=== PATIENT | female | born 1970 | race Caucasian/White ===

== ENCOUNTER 2024-09-29 09:28 | Outpatient (AMB) | payer MEDICARE, MEDICAID, SELFPAY ==
--- NOTE | 2024-09-29 09:31 | A.SPINEOV_ITS ---
Vital Signs 09/29/24 09:42 Height 5 ft 3 in Weight 238 lb BMI 42.2 Intake Visit Reasons: LBP Intake Note: Ms. Velez is here today c/o low back pain. 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: No Allergies dupilumab (From Dupixent Pen) Allergy (Intermediate, Verified 09/29/24 09:44) Rash NSAIDS (Non-Steroidal Anti-Inflamma Allergy (Intermediate, Verified 09/29/24 09:44) Rash Opioids - Morphine Analogues Allergy (Intermediate, Verified 09/29/24 09:44) Rash Sulfa (Sulfonamide Antibiotics) Allergy (Intermediate, Verified 09/29/24 09:44) Rash Physical Exam Vital Signs: BMI result Body Mass Index 42.2 Assessment & Plan Assessment & Plan (1) Chronic SI joint pain: Code(s): M53.3 - Sacrococcygeal disorders, not elsewhere classified; G89.29 - Other chronic pain Category: Medical Plan Thank you for referring Mrs Velez to our office today. She is a very nice 54-year-old female who suffers from severe asthma, who has had pain in the low back for several years. She localizes it best over the left SI joint. The pain is aggravated with standing, prolonged sitting or when she is bending and getting up to an upright position she will feel significant increase in her pain. Long car rides also will be disabling for a number of days afterwards. She can not take anti-inflammatories, so when she has a flare-up she will take some Tylenol and just generally rest but the symptoms can be incapacitating at times. It bothers her when she is sleeping and rolling over. She gets a little bit of the similar symptoms on the right side but for the most part it is on the left. She underwent injections with Dr. Camargo into the left SI joint and initially was getting about a 60-70% improvement in her symptoms but the last few injections it is more in the 30-40% range. Her lumbar spine has not shown any significant pathology. She was referred over to us to see if she is a candidate for SI joint fusion. She has undergone physical therapy as well as acupuncture to treat this. PMH: Main issue in her life is that she developed severe asthma as an adult and it is generally well controlled right now. She is followed by Dr. Kirby in [place]. Generally she is on prednisone but he has been able to get her on the right combination of inhalers so that she is no longer on this. The chronic prednisone has been an issue with her bones giving her osteopenia in his also made her prediabetic. She has had frontal sinus obliteration surgery, Achilles tendon resection and carpal tunnel release bilaterally. She has also had lithotripsy for kidney stones. History of GERD, peptic ulcer disease, hypertension. As far she knows her heart is in OK shape, she had a stress test a few years ago and that was negative. Social hx: She will smoke pot most days, does not smoke cigarettes or use any meaningful amount of alcohol Medications: Bupropion, albuterol, Tylenol, Klonopin, clonidine, vitamin B12 s hot, Pepcid, Nasalide, aspirin 325, hydroxyzine, Breo Ellipta inhaler, Trelegy inhaler, Nasalide, levothyroxine, hydroxyzine, gabapentin, melatonin, Vyvanse, pantoprazole, prazosin, Suvorexant, Tezspire monthly injection, zileuton Allergies: Please see the [email or web address] list Physical exam: Awake alert oriented no acute distress, the patient does have antalgic gait with walking down the hallway, localizes her pain over the left SI joint demonstrating positive finger Liset test. She does have reproducible pain with CHINMAY testing and direct compression of the SI joint. Strength in the lower extremities and reflexes are normal Imaging review: Lumbar MRI at [facility] shows no meaningful pathology in the lumbar spine. Impression: 54-year-old female with history of severe asthma, presents with low back pain primarily on the left side localizing over the SI joint. She has had intermittent decent responses to the SI joint injections that were done by Dr. Camargo although they become less successful over time. She has tried all the other conservative options that are available to her including medications, physical therapy, acupuncture etc.. She is very frustrated with her quality of life because she really can not do anything in terms of standing walking or sitting. She is constantly changing positions. She has a lot of trouble sleeping. She can only take Tylenol and the gabapentin help with the pain. She has no meaningful lumbar pathology to explain the pain. Although Dr. Ramey usually likes to have 80% response to the injections, since she has had upwards of 60-70% with the 1st few injections I will see if he would be willing to do SI joint fusion on her. Once I have a chance to review everything with him I will call the patient and update her. We did talk about the procedure, risks, benefits etc.. Success rate quoted at 60-70% improvement in her pain. She understands she will have to use crutches or walker afterwards and be nonweightbearing on her left leg. Thank you for allowing us to care for your patient. The total time spent with this visit with this patient was 45 minutes reviewing history, physical exam, lumbar imaging review, and implementation of treatment plan or further diagnostic testing Jose G Ramey MD,PhD [facility] Coding Level of Care Code New Pt Level 4 (23027) Diagnoses Chronic SI joint pain M53.3; G89.29
[2024-09-29 09:42] VITALS: BMI 42.2
--- OUTSIDE RECORDS SUMMARY | 2024-09-29 10:38 | XMS_ITS | Clinical Summary ---
Author Organization [facility] Address [address] [facility] [address] [place] [phone] Phone Care Team Providers Care Sales Department Manager Name Role Phone Theresa Hou MD Primary Care Prov ider Allergies Active Allergy Reactions Criticality Noted Date Comments Dupilumab Fever High 09/06/2019 Possible serum sickness Morphine Rash,Other (See Comments) Low 12/05/2010 Other Reaction(s): Rash/Dermatitis morphine Nsaids (Non-Steroidal Anti-Inflammatory Drug) Anaphylaxis,Other (See Comments) High 03/17/2012 Aspirin ok Non-steroidal anti-inflammatory agent (product) Sulfa (Sulfonamide Antibiotics) Rash Low 03/17/2012 Developed delayed rash to Bactrim and required 1d of hospitalization for it in 2001. Sulfa Drugs Other Reaction(s): Rash/Dermatitis Developed delayed rash to Bactrim and required 1d of hospitalization for it in 2001. Sulfamethoxazole-Tr imethoprim Other (See Comments) 05/20/2011 Bactrim Other Reaction(s): Rash/Dermatitis Bactrim Medications pantoprazole (PROTONIX) 40 MG tablet Take 40 mg by mouth 2 (two) times a day. Active nebulizer and compressor DeviIndications:As pirin-sensitive asthma with nasal polyps Requesting Portable Nebulizer plus: 1 filter/month 2 disposable neb kits/month 1 permanent neb kit/6 months Every six hours PRN for wheezing/shortness of breath 1 each 019 Active famotidine (PEPCID) 20 MG tablet Take 40 mg by mouth daily. Active ergocalciferol (DRISDOL) 50,000 unit capsule Take 1 capsule by mouth once a week. Active multivitamin per tablet Take by mouth daily. Active ascorbic acid, vitamin C, (VITAMIN C) 500 MG tablet Take 500 mg by mouth daily. Active calcium carbonate-vit D3-min 600 mg calcium- 400 unit Tab Take 1 tablet by mouth. Active aspirin 325 MG EC tabletIndications: [place]amp[place] Triad (AERD) ASA desensitization test 02/2021 Take 325 mg by mouth daily. Indications: Sampters Triad (AERD) ASA desensitization test 02/2021 Active melatonin 5 mg Tab Take 5 mg by mouth nightly at bedtime. at bedtime. Active clonazePAM (KLONOPIN) 0.5 MG tablet Take 0.5 mg by mouth daily as needed. Active EPINEPHrine 0.3 mg/0.3 mL auto-injector INJECT CONTENTS OF 1 PEN NEEDED FOR ANAPHYLACTIC REACTION Active CLIMARA PRO 0.045-0.015 mg/24 hr APPLY 1 PATCH TOPICALLY TO SKIN ONCE A WEEK 023 Active cyanocobalamin, vitamin B-12, (VITAMIN B-12 INJ) Inject 1,000 mcg as directed every 28 days. Active lisdexamfetamine (VYVANSE) 50 MG capsule Take 1 capsule by mouth every morning. Active hydrOXYzine (ATARAX) 50 MG tablet Take 50 mg by mouth 3 (three) times a day as needed. 024 Active clobetasol (TEMOVATE) 0.05 % ointment Apply 1 Application topically 2 (two) times a day. 024 Active brimonidine (ALPHAGAN) 0.2 % ophthalmic solution Place 1 drop into each eye 2 (two) times a day. 024 Active albuterol 2.5 mg /3 mL (0.083 %) nebulizer solutionIndication s:Severe persistent asthma without complication USE 1 VIAL IN NEBULIZER EVERY 6 HOURS NEEDED 300 mL 11 025 Active albuterol 90 mcg/actuation inhalerIndications :Severe persistent asthma without complication Inhale 2 puffs into the lungs every 6 (six) hours as needed for wheezing. 9 g 5 025 Active zileuton (ZYFLO CR) 600 mg CR tablet Take 2 tablets (1,200 mg total) by mouth 2 (two) times a day with meals. 120 tablet 11 Active buPROPion (WELLBUTRIN XL) 300 MG ER 24 hr tablet Take 300 mg by mouth every morning. Active tezepelumab-ekko (TEZSPIRE) 210 mg/1.91 mL (110 mg/mL) subcutaneous pen injectorIndication s:Severe persistent asthma without complication,Nasal polyp, benign,Chronic pansinusitis Inject 1.9 mL (210 mg total) under the skin every 28 days. 1.9 mL 12 Active fluticasone-umecli din-vilanter (TRELEGY ELLIPTA) 200-62.5-25 mcg inhalerIndications :Severe persistent asthma with acute exacerbation Inhale 1 puff into the lungs daily. 180 each Active fluticasone furoate (ARNUITY ELLIPTA) 200 mcg/actuation DsDv Inhale 1 puff into the lungs daily. 90 each 3 Active cloNIDine HCL (CATAPRES) 0.3 MG tablet Take 0.3 mg by mouth 2 (two) times a day. Active buPROPion (WELLBUTRIN XL) 150 MG ER 24 hr tablet TAKE 1 TABLET BY MOUTH EVERY MORNING TOGETHER WITH 300 MG FOR TOTAL DAILY DOSE OF 450 MG Active suvorexant (BELSOMRA) 10 mg tablet Take 1 tablet (10 mg total) by mouth nightly at bedtime. Take within 30 minutes of going to bed. 30 tablet 2 Active albuterol-budesoni de (AIRSUPRA) 90-80 mcg/actuation inhaler Inhale 2 puffs into the lungs every 4 (four) hours as needed for shortness of breath/dyspnea. 10.7 g 5 Active gabapentin (NEURONTIN) 400 MG capsule Take 400 mg by mouth 4 (four) times a day. Active prazosin (MINIPRESS) 2 MG capsule Take 2 mg by mouth nightly at bedtime. Active levothyroxine (SYNTHROID,LEVOTHR OID) 25 MCG tablet Take 1 tablet by mouth every morning. 023 2024 Disconti nued(No longer taking) prazosin (MINIPRESS) 1 MG capsule Take 1 mg by mouth nightly at bedtime. 2024 Disconti nued(No longer taking) predniSONE (DELTASONE) 2.5 MG tablet Take 2 tablets (5 mg total) by mouth daily. 90 tablet 5 025 2024 Disconti nued(No longer taking) gabapentin (NEURONTIN) 300 MG capsule Take 300 mg by mouth. 2024 Disconti nued(No longer taking) buPROPion (WELLBUTRIN XL) 300 MG ER 24 hr tablet Take 300 mg by mouth every morning. 2024 Disconti nued(No longer taking) brimonidine (LUMIFY) 0.025 % opthalmic solution Apply to eye. 2024 Disconti nued(No longer taking) predniSONE (DELTASONE) 2.5 MG tablet Take 5 mg by mouth daily. 2024 Disconti nued(No longer taking) Active Problems Problem Noted Date Diagnosed Date Need for RSV vaccination 08/30/2024 Assessment & Plan (08/30/2024 12:56 PM EDT): Extremely high risk. Recommend obtain RSV vaccine in the fall. Also encouraged to get seasonal flu vaccine and updated COVID-19 vaccine. 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 B12 deficiency 03/18/2023 Assessment & Plan (03/18/2023 1:00 PM EST): Out of convenience, will add IM B12 injections to her monthly IV infusions of CINQUIR . Hypertension 09/06/2019 Assessment & Plan (11/16/2020 2:51 PM EDT): Usual medications ordered Esophageal spasm 10/05/2018 Overview (10/05/2018): Response to sublingual nitroglycerin Assessment & Plan (12/06/2019 4:33 PM EDT): No recent flares. Continue as needed sublingual nitroglycerin. Assessment & Plan (01/31/2019 11:08 AM EST): Continue PRN sublingual nitroglycerin. Assessment & Plan (10/05/2018 12:20 PM EDT): Continue PRN sublingual nitro glycerin for now. Await results of upper endoscopy and further GI recommendations based on findings. Chronic pansinusitis 03/06/2017 Overview (12/06/2019): With nasal polyposis Assessment & Plan (05/25/2024 12:10 PM EDT): No active sinusitis on exam. Given dryness and crusting however, strongly encouraged to resume daily NetiPot. Assessment & Plan (02/11/2022 4:26 PM EST): Mild ear fullness, likely secondary to rhinitis. Continue daily NetiPot. Suggest resume nasal steroids either with budesonide or a nasal steroid spray. Can use oral decongestant or Afrin for 3 days. Assessment & Plan (07/31/2021 11:33 AM EDT): Encourage use of NetiPot daily as she weans her budesonide. Assessment & Plan (03/29/2021 1:01 PM EST): Thus far, no significant polyp regrowth and no recent infections. Patient followed closely by ENT, Dr. Kinney. Remains on regimen of budesonide and nasal rinse twice daily. Assessment & Plan (08/23/2020 11:37 AM EDT): Generally improved with signs and symptoms of early acute sinusitis. Continue twice daily budesonide rinse and aspirin therapy. Start Afrin 2-3 sprays each side twice daily for no more than 3 days. Start prednisone 40 mg daily for 5 days. Prescription for Augmentin x10 days provided if no improvement or any worsening in the next 2 days. Assessment & Plan (05/23/2020 12:51 PM EDT): Continue budesonide nasal rinse per Dr. Kinney. Assessment & Plan (03/07/2020 1:34 PM EST): No evidence for active acute bacterial infection at this time. Awaiting follow-up with ENT. Assessment & Plan (12/06/2019 4:34 PM EDT): No recent flares. Continue aspirin therapy. Continue nasal budesonide per ENT. Assessment & Plan (06/08/2019 2:05 PM EDT): Chronic rhinosinusitis with nasal polyposis. Currently clinically well controlled. Continue once daily full dose enteric-coated aspirin 325 mg. Continue twice daily budesonide sinus rinse. Continue Zyflo twice daily. Start Dupixent therapy as outlined above. Follow-up with Dr. Kinney as scheduled. Assessment & Plan (11/29/2017 4:36 PM EDT): Currently well controlled. Continue nasal rinse and nasal steroids. Assessment & Plan (06/04/2017 9:31 PM EDT): Resolution of prior acute sinusitis. Agree with current aggressive regimen including twice daily sinus saline rinse with additional baby shampoo, budesonide sinus rinse and additional nasal steroids. Assessment & Plan (03/06/2017 10:20 AM EST): On antiboitics. Start Afrin NS 1-23 sprays each side twice daily for 2-3 days max. Sinus rinse twice daily, add 1/2 tsp of baby shampoo (no fragrance) to each bottle. THEN, Budesonide in each nares twice daily (bulb syringe?) History of Clostridium difficile infection 03/06 Overview (03/06/2017): Community acquired Assessment & Plan (03/06/2017 10:17 AM EST): Recommend obtain Vancomycin prophylactically while on ABx. Rx for 14 days (ABx for 10 days). Continue twice daily Probiotic - recommend obtain high diversity and quantiity version (refrigerated) such [employer] RAW PROBIOTIC. Nasal polyp, benign 05/08/2016 Assessment & Plan (05/25/2024 12:07 PM EDT): Nasal polyposis secondary to AERD. Continue aspirin therapy. Assessment & Plan (02/22/2018 11:16 AM EST): Excess dry secretions on exam. Suggest trial of adding either corn syrup and/or xylitol to NetiPot. Severe persistent asthma without complication Assessment & Plan (08/30/2024 12:54 PM EDT): Severe persistent asthma with modest control. Still using albuterol several times per week. However no recent exacerbations fortunately. Will plan to continue regimen of Tezspire in addition to high-dose Trelegy plus Arnuity, Zyflo and alternate day prednisone 5 mg. Continues on albuterol as needed. Will change to Airsupra now that covered. Await repeat spirometry to ensure physiologic control. Assessment & Plan (05/25/2024 12:10 PM EDT): Severe persistent asthma part of her triad asthma/AERD. Despite IV anti-IL-5 therapy, continues to have breakthrough exacerbations and requires systemic prednisone. Discussed recent data suggesting improved asthma and nasal polyposis with Tezspire. Recommend a trial of changing. PLAN: Continue triple inhaler therapy with high-dose Trelegy. Continue new additional ICS with Arnuity Ellipta Continue leukotriene inhibition with diluted in 1200 mg twice daily Continue as needed albuterol Change prednisone to 5 mg every other day After today's dose, HOLD CINQAIR. Will need new therapy plan for B12 injections. START Tezspire 210 mg subcu every 4 weeks. Sent to [facility] specialty pharmacy. Assessment & Plan (06/17/2023 11:40 AM EDT): Severe asthma with a complex regimen including anti-IL-5 therapy, high-dose ICS with triple inhaler treatment, leukotriene inhibition and now low-dose alternate day prednisone. Has not been rechallenged with an upper respiratory infection but certainly at baseline she is asymptomatic and her spirometry is normal. Will try decreasing prednisone to 2.5 mg every other day. Assessment & Plan (03/18/2023 12:56 PM EST): Severe asthma with no exacerbation but worsening control following COVID-19 infection approximately 5 to 6 weeks ago. Spirometry continues to demonstrate marked bronchial reactivity worse from previous which was normal. This is despite and spite of high-dose Trelegy Ellipta plus additional high-dose Arnuity Ellipta, Zyflo and anti-IL-5 therapy. PLAN: Continue asthma management as above Continue to monitor LFTs times per year while onsite [place] ADD back daily prednisone 10 mg/day until symptoms resolve, then taper to 10 mg every other day. After 2 to 4 weeks of stability, can taper further to 5 mg every other day. Repeat spirometry prior to follow-up. Assessment & Plan (08/08/2022 11:58 AM EDT): Excellent control on current regimen. We will continue high-dose Breo Ellipta, and additional Arnuity Ellipta, Zyflo, and anti-IL-5 therapy with IV Cinqair. Plan repeat spirometry with FeNO testing prior to follow-up visit in 6 months. If stable at that time, consider discontinuing Arnuity Ellipta. Assessment & Plan (02/11/2022 4:25 PM EST): Recent exacerbation, likely triggered by post viral illness, resolved. However, given persistent bronchial reactivity on PFTs, recommend RESUME Arnuity Ellipta in addition to high-dose Trelegy, leukotrienes inhibitor therapy, and anti-IL-5 therapy. Continue albuterol as needed. Recommend repeat spirometry in 6 to 12 months. Assessment & Plan (07/31/2021 11:34 AM EDT): Marked improvement last 6 months on treatment with IV anti-IL-5 therapy with reslizumab. Continue current dosing, though will wean pretreatment methylprednisolone as may no longer be required. Continue high-dose Trelegy Ellipta, Zyflo, Accolate, and the reslizumab. Continue monitor LFTs every 3 months while on Zyflo. DISCONTINUE Arnuity Ellipta and monitor for 2 months. If no worsening of asthma, can try stopping Zyflo, monitoring closely for any worsening of either asthma or rhinosinusitis/polyp disease. Obtain PFTs prior to follow-up. Assessment & Plan (03/29/2021 1:00 PM EST): Currently improved asthma control on current regimen, including IV CINQAIR, high-dose Trelegy, high-dose Arnuity, Accolate and Zyflo in addition to every other day low-dose 5 mg of prednisone. Minimal additional albuterol use currently. Would continue this regimen for an additional 4 months. If asthma remains stable, with then try tapering regimen, initially stopping prednisone as the first step. Assessment & Plan (12/26/2020 1:02 PM EST): Steroid-dependent, severe persistent asthma despite maximum therapy. Severe exacerbation with prolonged prednisone taper slowly improving. Continue high-dose Trelegy, plus Arnuity, Accolate and Zyflo with as needed albuterol MDI/nebs. Continue prednisone EVERY DAY at 5 mg. If asthma begins to worsen, may have to increase dose further. Last Fasenra injection 1 week ago. Given persistent breakthrough exacerbations, will attempt to transition to IV Cinqair as it is a weight-based formulation of anti-IL-5 therapy. Assessment & Plan (08/23/2020 11:38 AM EDT): Mild early exacerbation the setting of early sinusitis. Continue current asthma regimen. Increase albuterol as needed. Monitor improvement with steroids. When returns, we will discuss whether to continue with Fasenra or convert to IV Cinqar Assessment & Plan (05/23/2020 12:53 PM EDT): Improved asthma control on triple therapy with very high-dose inhaled steroid plus leukotriene inhibitor and now every other day systemic steroids. Clear benefit from Fasenra though not as effective as was Dupixent before she developed side effects. Discussed goal is to achieve excellent asthma control, minimizing both inhaled and systemic steroids as much as possible. As such, will try adding zafirlukast 20 mg twice daily. If no clear benefit after several weeks, would consider stopping Fasenra and changing to IV Cinqar, a weight-based IV anti-IL-5 therapy. Theoretically since weight- based may be more effective. However mechanism of action similar as that to Nucala targeting interleukin-5 as opposed to Fasenra which targets the interleukin-5 receptor. Patient to call after 4 weeks, after her next Fasenra dose, to report if would like to change from Fasenra to Cinqar. Assessment & Plan (03/07/2020 1:36 PM EST): Improved but continued inadequate asthma control. For convenience, change from high-dose Breo plus Incruse to high-dose Trelegy Ellipta Continue additional ICS with high-dose Arnuity Ellipta Continue Zyflo Continue Fasenra, now every 8 weeks. Albuterol as needed Monitor benefit of increase aspirin dosing. If continued inadequate asthma control, will then start trial of low-dose prednisone, 5 mg every other day. If asthma control continues to remain inadequate, with change from Fasenra to IV Cinqar. Assessment & Plan (12/06/2019 4:35 PM EDT): Recurrent exacerbations, 2 courses of prednisone last 6 months while off Biologics. Continue aggressive inhaler regimen of high-dose Breo Ellipta plus Arnuity plus Incruse. Continues on Zyflo. Taper prednisone. Resume Fasenra, second dose administered 1 week ago, due for third monthly dose in 3 weeks but then schedule to move to every 8-week dosing. Following third monthly dose of Fasenra, if develops recurrent exacerbations, would switch to weight-based anti-IL-5 therapy with reslizumab (Cinqar). If still not effective asthma control, would refer to asthma specialty center, such as [facility] severe asthma clinic, for second opinion and consideration for clinical trials. Hope to avoid chronic daily or alternate day prednisone therapy. Assessment & Plan (09/06/2019 2:02 PM EDT): Worsening asthma control despite high-dose inhaled steroid, dual long-acting bronchodilator combination, and anti-leukotriene therapy in addition to chronic aspirin treatment. Unfortunately, despite excellent clinical response to Dupixent, developed severe side effects and thus discontinued in cannot rechallenge. Awaiting approval to resume anti-IL-5 therapy, Fasenra. Continue regimen of high-dose Brio Ellipta, Incruse Ellipta, additional Arnuity Ellipta, PRN albuterol MDI and nebs, Zyflo, and full dose once daily aspirin. Increase neb treatments up to 4 times daily. Low threshold to start prednisone 60 mg daily for 3 up to 10 days. Assessment & Plan (06/08/2019 2:04 PM EDT): Relatively stable with moderate control. Still with occasional nocturnal awakening despite high-dose inhaled steroids and dual long-acting bronchodilators. Off anti-IL-5 therapy, Fasenra, now 4 months though clearly did not obtain significant benefit. PLAN: For now, continue high-dose Brio Ellipta, Incruse plus Arnuity Ellipta Continue albuterol MDI/nebulizers as needed. Continue Zyflo twice daily. We will start Dupixent. Scheduled with pulmonary RN, tomorrow afternoon if possible. RN can teach and administer 1 dose and have the Patience self administer the second injection of the loading dose. The next injection would be due in 2 weeks. Patience can hip self-administered home, or if needed, can arrange for repeat nurse visit for assistance. Assessment & Plan (01/31/2019 11:13 AM EST): Inadequate asthma control despite high-dose inhaled corticosteroid and dual long-acting bronchodilator treatment with still frequent short acting bronchodilator use in addition to anti-IL-5 therapy. Given presence of nasal polyposis, recommend the following: For now, continue high-dose Brio Ellipta, Arnuity Ellipta, and Incruse Ellipta. Continue Zyflo twice daily Continue albuterol as needed Remains on aspirin therapy. Next Fasenra injection, then plan to discontinue Change to Dupixent therapy. Dosing for nasal polyposis loading dose of 600 mg x 1, followed by 300 mg injection every 2 weeks. Patient will need to return to complete paperwork but will wait to submit till after the first of the year to avoid any complex change in insurance requirements. Though unlikely, will need to monitor closely to ensure no worsening of asthma control with change in therapy however. Assessment & Plan (10/05/2018 12:25 PM EDT): Moderate control with ongoing early a.m. symptoms. Continue complex high-dose inhaled steroid and long-acting bronchodilator regimen of Arnuity, Breo, Incruse Ellipta. Should resume Zyflo, new prescription sent. Albuterol as needed and prior to exercise. Continue Fasenra. Assessment & Plan (06/25/2018 3:22 PM EDT): Significantly improved control. Continue high-dose Brio Ellipta, additional Arnuity Ellipta, and albuterol as needed. If remains stable, try stopping Incruse Ellipta. Continue Fasenra injections. With upcoming move of Dr. Newton's office, patient requests change receiving medication here at [facility]. Goal will be begin for September injection. Assessment & Plan (02/22/2018 11:15 AM EST): Multiple recurrent exacerbations, remains on low-dose prednisone. With persistent abnormal sputum, will attempt to induce sample with 3% saline and sent for culture. Assessment & Plan (11/29/2017 4:35 PM EDT): Recurrent exacerbation following presumed URI. Patient and report this is typical pattern annually. Certainly may be due to increase in respiratory viral season, alternatively allergens may play a role as well. Finally, patient also tapered inhaler regimen prior to this season. Recommendations: Would extend prednisone taper for 5 days per dose of 40 mg/day, then 20 mg/day, then 10. If worsening, can extend further if needed. Continue high-dose Brio Ellipta. Resume high-dose Arnuity Ellipta and Incruse Ellipta. Continue Fasenra injections. If after 6 months, patient unable to taper medications or with recurrent exacerbations, may be eligible for Dupixent when approved for asthma treatment. Continue Zyflo and as needed albuterol. Assessment & Plan (06/04/2017 9:36 PM EDT): Severe asthma with generally poor control though with good spirometry on testing today. Despite aggressive therapy with high-dose inhaled steroids, dual long-acting bronchodilators and leukotriene inhibition, as well as anti-IL-5 therapy, the patient still requires frequent use of short acting bronchodilator indicating inadequate asthma control. Given questionable response to Nucala, recommend patient change to alternative anti-IL-5 therapy with Fasenra. As this is not available at our institution currently, we will request she received this agent through Dr. Newton. Assessment & Plan (03/06/2017 10:12 AM EST): Continue current inhaler regimen. STart short burst of prednisone - 60mg for 5 days or until improved. Only taper if needed based on symptoms. Will continue Nucala for now, but plan to change to Fasenra when available. Adverse reaction to non-ster oidal anti-inflammatory drug (NSAID) 05/08/2016 Eosinophilia 05/08/2016 Drug allergy 04/16/2012 Overview (09/06/2019): Dupixent Assessment & Plan (09/06/2019 2:02 PM EDT): Severe drug reaction to Dupixent therapy. Exact mechanism unclear as unable to obtain labs at that time. Paradoxical HyperSal eosinophilic response has been documented, though additional possibilities include serum sickness. Due to severity, and risk of more severe complications, rechallenge not recommended and thus added to medication list. Aspirin-sensitive asthma with nasal polyps 03/17 Overview (04/01/2014): Aspirin-sensitive asthma with nasal polyps Assessment & Plan (08/30/2024 12:49 PM EDT): Remains on daily full dose aspirin with no recurrence of nasal polyps. Continues to follow with Dr. Kinney. Assessment & Plan (06/17/2023 11:40 AM EDT): No recurrent polyps on anti-IL-5 therapy and single full-strength aspirin daily. Tolerating from a GI standpoint with PPI in the morning and H2 chong at night. Continue current therapy. Assessment & Plan (03/18/2023 12:57 PM EST): Tolerating aspirin well with no recurrent nasal polyps. Mild dryness on exam, suggest reinstitute nasal sinus rinse daily. At least during winter months. Assessment & Plan (08/08/2022 11:58 AM EDT): No polyps on recent ENT exam. Continue full dose aspirin once daily. Assessment & Plan (02/11/2022 4:26 PM EST): Continue full dose once daily aspirin. Assessment & Plan (07/31/2021 11:33 AM EDT): Doing well from an asthma and polyp perspective. Continue once daily full dose aspirin. Assessment & Plan (03/29/2021 1:01 PM EST): Continue twice daily aspirin for polyp suppression. Assessment & Plan (12/26/2020 1:01 PM EST): Currently off aspirin therapy due to recent severe asthma exacerbation requiring hospitalization. Awaiting to resume budesonide nasal rinse. Continue Flonase and leukotriene inhibitors. Will plan repeat aspirin desensitization in approximately 1 month. Assessment & Plan (11/19/2020 4:04 PM EDT): Patient takes daily aspirin for this-held as per recommendation of planner/scheduler. Assessment & Plan (11/18/2020 1:34 PM EDT): Discussed with patient my recommend about holding ASA during this exacerbation. It may be the cause of her delayed improvement. Would hold at least 5 days to a week. She will need to uptitrate dose in the future but hopefully when her flare up is completely under control. Assessment & Plan (08/23/2020 11:38 AM EDT): Currently remains clinically stable. Continue regimen of once daily aspirin, and complex asthma regimen including every other day low-dose prednisone. Assessment & Plan (05/23/2020 12:52 PM EDT): Remains on moderate dose daily aspirin now 650 mg once daily. Polyps with improved control on low-dose prednisone. Monitor for improvement with addition of zafirlukast, with the goal of ideally stopping prednisone and reducing aspirin dose. Assessment & Plan (03/07/2020 1:35 PM EST): Symptoms consistent with worsening polyp disease. Continue aggressive intranasal topical steroid use. Awaiting ENT follow-up. Trial increasing aspirin from once daily to 325 mg twice daily, monitoring closely for any worsening of asthma or GI side effects. If no improvement over the next several weeks, after ENT follow-up, could add low-dose alternate day prednisone. Assessment & Plan (01/31/2019 11:12 AM EST): Inadequate polyp management despite high-dose nasal steroids and chronic aspirin therapy, the latter difficult to tolerate at typical therapeutic doses however. As above, will change biologic treatment to Dupixent which is now approved for treatment of chronic nasal polyposis. Assessment & Plan (10/05/2018 12:27 PM EDT): Continue aspirin therapy, though hold afternoon baby aspirin until GI work-up complete. Reordered budesonide solution for nasal rinse. Should continue twice daily. If unable to obtain, would add back nasal steroid spray. Budesonide can be mixed with twice daily [place] pot which is she is using, can also be instilled directly or nebulized. Assessment & Plan (02/22/2018 11:18 AM EST): Recurrent exacerbations despite high-dose combination inhaler regimen as well as anti-IL 5 therapy. Unclear benefit of latter as worsening control may be related to lower aspirin dose. Encouraged to try gradually increasing aspirin continuing full dose once daily and adding a baby aspirin as a second dose. If tolerates, can gradually titrate up to goal of 325 mg twice daily. If asthma control significantly improves, first inhaler and try stopping would be the Incruse. Can always resume if notes increased need for short acting bronchodilator, i.e. albuterol. Assessment & Plan (11/29/2017 4:38 PM EDT): Concerned regarding worsening asthma control and/or recurrent polyps on once daily aspirin. Once asthma stabilized, would consider increasing back to twice daily aspirin therapy. Assessment & Plan (06/04/2017 9:33 PM EDT): Patient currently tolerating current twice daily aspirin regimen without worsening of nasal polyps nor asthma at this time. Would continue current aspirin therapy but will need aggressive monitoring of known peptic ulcer disease as outlined below. Gastroesophageal reflux disease with esophagitis 03/17/2012 Overview (02/11/2022): EGD October 2018 with mild Grade A esophagitis, resolved 2021 Assessment & Plan (08/30/2024 12:49 PM EDT): Minimal current symptoms. Continue current regimen. Assessment & Plan (03/18/2023 12:57 PM EST): Currently well-controlled despite daily aspirin therapy. Continue Protonix and famotidine Assessment & Plan (08/08/2022 11:58 AM EDT): Stable without active symptoms despite once daily aspirin therapy. Agree with continuing pantoprazole in the morning and famotidine at night. Okay to try to taper off baclofen. Assessment & Plan (02/11/2022 4:26 PM EST): Suggest trial of weaning antacid therapy with PPI to once daily and baclofen twice daily. Assessment & Plan (07/31/2021 11:33 AM EDT): Negative EGD in June with marked improvement in symptoms. Recommend trial of decreasing Protonix to once daily. Could subsequently try changing baclofen to twice daily if remains asymptomatic. Assessment & Plan (03/29/2021 1:00 PM EST): Ongoing reflux symptoms. Feels no worse back on aspirin. Continues on multimodal GERD therapy, including PPI, H2 chong, and baclofen. Awaiting repeat EGD in 2 and half months. Assessment & Plan (11/17/2020 2:12 PM EDT): Patient has GERD with esophageal spasm. She takes PPI and baclofen for these (Gabapentin for nerve damage left leg ) Assessment & Plan (08/23/2020 11:39 AM EDT): Fortunately remains asymptomatic. Continue aggressive regimen as is. Assessment & Plan (05/23/2020 12:51 PM EDT): Improved control though some breakthrough since increasing aspirin dose. Continue PPI, H2 chong, and baclofen. Can increase baclofen dose if needed up to 20 mg 3 times daily. Sublingual nitroglycerin for spasm. Assessment & Plan (03/07/2020 1:34 PM EST): Marked improved symptoms of GERD following start of baclofen. With increase aspirin dose, monitor for worsening symptoms. If so, can increase baclofen from 10 mg up to 20 mg 3 times daily but then would refer back to GI for EGD. Assessment & Plan (12/06/2019 4:33 PM EDT): Currently symptomatically well controlled but on aggressive regimen of twice daily PPI therapy, once daily H2 chong, and baclofen. Encourage annual follow-up with GI. Assessment & Plan (09/06/2019 2:01 PM EDT): Stable on current regimen. Continue baclofen, Protonix, and H2 blockers. Assessment & Plan (06/08/2019 2:05 PM EDT): Notably improved symptom control with addition of baclofen. Would continue 10 mg 3 times daily. Can always increase dose if persistent breakthrough. Assessment & Plan (01/31/2019 11:10 AM EST): Suspect significant element of symptoms may be related to dysmotility. Remains on high-dose dual acid suppressant therapy with twice daily PPI and twice daily H2 chong therapy. Recommend trial of baclofen. Start with 5 mg 3 times daily. After 1 week, can increase to 10 mg 3 times per day. If tolerates without excess somnolence, can increase to 20 mg 3 times per day but will need new prescription Assessment & Plan (06/25/2018 3:24 PM EDT): Acid therapy as outlined below. Chest pains however suggestive of likely esophageal spasm. Recommend trial of sublingual nitroglycerin. If effective, given daily symptoms, could modify antihypertensive regimen to maximize amlodipine dose, potentially obviating the need for losartan. Would defer latter decisions to her primary care. Assessment & Plan (02/22/2018 11:16 AM EST): Reflux/PUD symptoms improved with lower dose aspirin once daily for dose aspirin no remains on high-dose combination acid suppressant therapy. With increasing of aspirin dose, consider adding twice daily Carafate. Osteopenia 03/17/2012 Overview (04/01/2014): Osteopenia Assessment & Plan (06/17/2023 11:39 AM EDT): Patie with a history of long standing recurrent courses of prednisone with private previous reported osteoporosis, last study in December 2020 with osteopenia with much fewer steroid courses. She is now on low-dose alternate day therapy. Will repeat bone densitometry and if there is persistent osteopenia, will likely resume bisphosphonate therapy. Glaucoma 03/17/2012 Overview (04/01/2014): Glaucoma Class 3 severe obesity with serious comorbidity and body mass index (BMI) of 40.0 to 44.9 in adult 03/17/2012 Overview (04/01/2014): Overweight Assessment & Plan (08/30/2024 12:52 PM EDT): Awaiting upcoming consultation with weight management program at [facility]. Currently no data to show reduction in asthma exacerbations with weight loss though is theorized. Assessment & Plan (05/25/2024 12:07 PM EDT): Given significant weight gain now in the severe obese range, with intermittent use of insulin on chronic steroids. Current data suggests possible improvement in asthma with GLP-1 agonist though treatment would be off label for the asthma indication. Given difficulties losing weight, and ongoing prednisone use, will refer to [facility] weight management program for further evaluation. Resolved Problems Problem Noted Date Diagnosed Date Resolved Date Acute asthma exacerbation 11/15/2020 Assessment & Plan (11/18/2020 1:33 PM EDT): Continues to have significant wheezing on exam though improved. Recommend keeping IV Solu-Medrol at 125mg IV q6 another day. Then half to 60 IV q 6h tomorrow. Continue standing nebulized bronchodilators. Continue home montelukast. Cont on Advair. Assessment & Plan (11/19/2020 4:02 PM EDT): Patient admitted with severe exacerbation of severe persistent asthma. Failed outpatient treatment. Long difficult hospitalization with transition to improvement only with very high doses of corticosteroids. These were cut in half today and we can transfer to oral tomorrow if she still doing well. May be able to be discharged on high-dose prednisone. Acute severe exacerbation of severe persistent asthma 11/09/2020 03/29/2021 Assessment & Plan (11/09/2020 3:09 PM EDT): Patient has continued to clinically worsen despite adding 5 mg of daily prednisone to her regimen a few days ago. Her low-grade fevers and upper respiratory symptoms are suggestive of a viral upper respiratory tract infection with possible bronchitis. For now, will prescribe a slow prednisone taper along with a Z-Luis A, primarily for its anti-inflammatory properties. Patient was advised that if she starts requiring her nebulizer more frequently than every few hours, she should be brought to the emergency room for prompt evaluation. If she rapidly declines, 911 should be called. She also knows that if she develops progressive fevers or discolored sputum production, or any other progressive respiratory symptoms, she should call back the office for follow-up as chest imaging may then be indicated. I advised influenza vaccination once she is feeling better and hopefully off prednisone. Recurrent peptic ulcer disease 03/06/2017 12/06/2019 Assessment & Plan (10/05/2018 12:20 PM EDT): Report of mild hematochezia over the weekend now resolved. Concern regarding recurrent PUD. Continue high-dose twice daily pantoprazole, ranitidine, and encouraged to resume Carafate at least twice daily whenever can take between meals and medications. Hold afternoon aspirin until endoscopy results. Reminded if develops recurrent bleeding, to seek medical attention immediately. Assessment & Plan (06/25/2018 3:23 PM EDT): Continue PPI plus Zantac. Encourage trial of adding Carafate twice daily. Reminded to avoid taking with any pills. Refer to local GI as believe patient should have close monitoring given history of significant esophagitis and ongoing aspirin therapy. Assessment & Plan (11/29/2017 4:37 PM EDT): Improved GERD symptoms on only once daily aspirin with twice daily Protonix and Zantac. If worsening GI symptoms, recommend sooner re-evaluation with gastroenterology. However, should be seen at least once yearly given severity of symptoms and active aspirin use. Assessment & Plan (06/04/2017 9:37 PM EDT): Ongoing symptoms of likely peptic ulcer disease due to chronic asthma therapy despite twice daily high-dose Protonix with additional H2 blockers. Recommend increase ranitidine to twice daily. Recommend follow-up with gastroenterology as I believe the patient would benefit from repeat upper endoscopy given her report of intermittent episodes of hematemesis. Assessment & Plan (03/06/2017 10:13 AM EST): Continue Protonix twice daily. Add ranitidine 150mg twice daily. Follow with GI. Encounters Date Type Department Care Team Description 09/23/2024 Telephone [facility] General Surgical Care [address] [place] [address] Divya Pan CNP Patient Returned Call 09/19/2024 1:30 PM EDT Office Visit [facility] Pulmonary, Allergy and Critical Care Medicine [address] [place] [address] Jose G Manzo MD Daytime sleepiness; Snoring; Other insomnia; Delayed sleep phase syndrome 09/19/2024 Telephone [facility] Pulmonary, Allergy and Critical Care Medicine [address] [place] [address] Jose G Manzo MD Sleep Study (In lab with SMS) 09/14/2024 11:00 AM EDT Infusion [address] [address] Irasema Kirby MD B12 deficiency (Primary Dx) 08/30/2024 10:30 AM EDT Office Visit [facility] Pulmonary, Allergy and Critical Care Medicine [address] [place] [address] Irasema Kirby MD Aspirin-sensitive asthma with nasal polyps (Primary Dx); Gastroesophageal reflux disease with esophagitis without hemorrhage; Class 3 severe obesity with serious comorbidity and body mass index (BMI) of 40.0 to 44.9 in adult; Severe persistent asthma without complication; Need for RSV vaccination 08/30/2024 Transcribe Orders [facility] PFT Lab [address] [place] [phone] Irasema Kirby MD 08/17/2024 11:30 AM EDT Infusion [address] [address] Irasema Kirby MD B12 deficiency (Primary Dx) 08/16/2024 2:00 PM EDT Office Visit [facility] Pulmonary, Allergy and Critical Care Medicine [address] [place] [phone] Jose G Manzo MD Other insomnia; Snoring; Daytime sleepiness; Delayed sleep phase syndrome 07/20/2024 11:30 AM EDT Infusion [address] [address] Irasema Kirby MD B12 deficiency (Primary Dx) from Last 3 Months Immunizations Immunization Administration Dates Next Due Influenza Quadrivalent Prese rvative Free IM 11/20/2020(Deferred: Patient Refused) Influenza, Unspecified Formulation 03/17/2012 Family History Medical History Relation Comments Asthma Mother Relation Status Comments Mother Social History Tobacco Use Types Packs/Day Years Used Date Smoking Tobacco: Former Cigarettes - 1991 Smokeless Tobacco: Never Tobacco Cessation:Counseling Given: Not Answered Comments:Cigar once a while Alcohol Use Standard [...] Orientation Straight 11/13/2020 11 :10 AM EDT Last Filed Vital Signs Vital Sign Reading Time Taken Comments Blood Pressure 128/82 09/19/2024 1:44 PM EDT Pulse 110 09/19/2024 1:44 PM EDT Temperature 36.4 C (97.5 F) 09/19/2024 1:44 PM EDT Respiratory Rate 18 09/14/2024 11:0 7 AM EDT Oxygen Saturation 98% 09/19/2024 1:44 PM EDT Inhaled Oxygen Concentration - - Weight 103.8 kg (228 lb 12.8 oz) 09/19/2024 1:44 PM EDT Height 160 cm (5' 3 ) 09/19/2024 1:44 PM EDT Body Mass Index 40.53 09/19/2024 1:44 PM EDT Plan of Treatment Upcoming Encounters Date Type Department Care Team (Late st Contact Info) Description 10/12/2024 11:00 AM EDT Infusion [facility] [address] [place] [address] Irasema Kirby MD [address] [place] [phone] 10/14/2024 1:00 PM EDT Office Visit [facility] General Surgical Care [address] [place] [address] Divya Pan, [employer] [address] [address] 10/19/2024 3:00 PM EDT Appointment [facility] PFT Lab [address] [place] [address] Irasema Kirby MD [address] [place] [phone] 11/09/2024 11:00 AM EDT Infusion [facility] Medical Infusion Center [address] [place] [address] Irasema Kirby MD [address] [place] [phone] 12/07/2024 11:00 AM EDT Infusion [facility] Medical Infusion Center [address] [place] [address] Irasema Kirby MD [address] [place] [address] [phone] 01/04/2025 11:00 AM EST Infusion [facility] Medical Infusion Center [address] [place] [address] Irasema Kirby MD [address] [place] [address] [phone] 02/03/2025 11:00 AM EST Infusion [facility] Medical Infusion Center [address] [place] [address] Irasema Kirby MD [address] [place] [phone] [email or web address] Health Maintenance Due Date Last Done Comments DEPRESSION SCREENING 1983 HEPATITIS C SCREENING 09/09/1989 HIV ONE-TIME SCREENING (18-65 YEARS) 09/09/1989 COLOGUARD 09/09/2016 FIT TEST 09/09/2016 FOBT 09/09/2016 SIGMOIDOSCOPY 09/09/2016 VIRTUAL COLONOSCOPY 09/09/2016 PAP SMEAR 08/05/2020 08/05/2017 MAMMOGRAM 09/28/2022 09/28/2020 COVID-19 VACCINE ( season) 2023 12/25/2021, 12/30/2020, 05/06/2020, Additional history exists SCREENING FOR DIABETES 11/16/2023 11/15/2020 BLOOD PRESSURE 03/22/2025 09/19/2024 SMOKING Hx and SMOKELESS TOBACCO SCREENING 08/30/2025 08/30/2024 LIPID PANEL 04/24/2027 04/23/2022, 08/10, 09/05/2020 COLONOSCOPY 06/11/2031 06/10/2021 COLORECTAL CANCER SCREENING 06/11/2031 Adult Td,Tdap Booster 04/16/2032 04/16/2022, 012 ZOSTER VACCINES Completed 07/29/2022, 05/27/2022 PNEUMOCOCCAL VACCINES (50+ years) Completed 05/04/2024 HEPATITIS A VACCINES Aged Out No long er eligible based on patient's age to complete this topic HIB VACCINES Aged Out No longer eligi ble based on patient's age to complete this topic MENINGOCOCCAL VACCINES (ACWY) Aged Out No longer eligible based on patient's age to complete this topic MENINGOCOCCAL VACCINES (B) Aged Out N o longer eligible based on patient's age to complete this topic Medical Devices Implanted Type Area Advertising Coordinator Device Identifier Shelf Expiration Date Model / Serial / Lot Plate And Screws In Forhead From Sinus Surgery Procedures Procedure Name Priority Date/Time Associated Diagnosis Comments ENDOSCOPY, COLON 06/10/2021 11:1 3 AM EDT from Last 3 Months or Most Recently Relevant to Health Maintenance Results * ENDOSCOPY, COLON (06/10/2021 11:13 AM EDT) Narrative Transcriptions Irasema Rodriguez MD - 06/10/2021 11:13 AM EDT Patient Name: Leslie Sanchezanzaro Attending MD:: IRASEMA RODRIGUEZ MD Procedure Date: 06/10/2021 11:13 AM Date of : 1970 Age: 50 Admit Type: Outpatient Gender: Female Room: [facility] Referring MD: Geovanny Ng MD Exam Type: Colonoscopy Indications: Screening for colorectal malignant neoplasm,Chronic diarrhea Medications: Monitored Anesthesia Care Procedure: Informed consent was obtained from the patientafter discussion of the indications, limitations, alternatives, benefits, and risks of the procedure. Risks specifically discussed include but are not limited to medication reactions, missed lesions, bleeding, perforation, or the need for emergent surgery. Throughout the procedure, the patient's blood pressure, pulse, end-tidal CO2, and oxygensaturations were monitored continuously. The Olympus adult variable colonoscope [id number] #7 was introduced through the anus and advanced to the cecum, identified by the appendiceal orifice, ileocecal valve and palpation. The colonoscopy was performed without difficulty. The patient tolerated the procedure. Complications: No immediate complications. Estimated blood loss: Minimal. Findings: The perianal and digital rectal examinations were normal. Pertinent negatives include normalsphincter tone. Normal mucosa was found in the entire colon.Biopsies for histology were taken with a cold forceps fromthe ascending colon, transverse colon and descendingcolon for evaluation of microscopic colitis. Estimatedblood loss was minimal. A few small-mouthed diverticula were found in the descending colon and ascending colon. The exam was otherwise without abnormality ondirect and retroflexion views. Impression: - Normal mucosa in the entire examined colon.Biopsied. - Diverticulosis in the descending colon and in the ascending colon. - The examination was otherwise normal on directand retroflexion views. Recommendation: - I will send results of your biopsy to you andyour referring physician or provider. If you do notreceive notification within 3 weeks, please call [email or web address]. - Repeat colonoscopy in 10 years for screening purposes. - Return to GI office as previously scheduled. IRASEMA RODRIGUEZ MD 06/10/2021 11:45:27 AM This report has been signed electronically. Number of Addenda: 0 Note Initiated On: 06/10/2021 11:13 AM Procedure Code(s): --- Professional --- 66766, Colonoscopy, flexible; with biopsy, single or multiple --- Technical --- 39016, Colonoscopy, flexible; with biopsy, single or multiple Diagnosis Code(s): --- Professional --- Z12.11, Encounter for screening for malignantneoplasm of colon K52.9, Noninfective gastroenteritis and colitis, unspecified K57.30, Diverticulosis of large intestine without perforation or abscess without bleeding --- Technical --- Z12.11, Encounter for screening for malignantneoplasm of colon K52.9, Noninfective gastroenteritis and colitis, unspecified K57.30, Diverticulosis of large intestine without perforation or abscess without bleeding CPT copyright 2020 [employer] [employer]. All rights reserved. The codes documented in this report are preliminary and upon digital advertising specialist reviewmay be revised to meet current compliance requirements. Procedure Date: 06/10/2021 11:13:[address] [place] [phone] Geovanny Ng MD GI PROCEDURE ORDERABLES Final Result from Last 3 Months or Most Recently Relevant to Health Maintenance Insurance MEDICARE PART A & B [id number] [place] [address] MEDICARE PART A & [facility] B Member Subscriber Plan / Payer (Ef fective 1995-) Name:Leslie Velez L Member ID:[id number] Relation to Subscriber:Self Name:Leslie eVlez L Subscriber ID:[id number] Payer ID:[id number] Group ID:Not on file Type:Medicare Address: [employer] [address] [facility] & B HEALTH MEDICARE PART A & B [facility] MEDICARE PART A & B [place] [facility] [place] [address] MEDICARE PART A & B [facility] Advance Directives For more information, please contact: [phone] (9AM - 5PM [facility], Thursday-Thursday) * Full Code (Latest Code Status on File) Date Activated Date Inactivated Comments 11/15/2020 4:53 PM Question Answer Comments Code Status Confirmed With: Patient Care Teams Sales Department Manager Relationship Specialty Start Date End Date Theresa Hou MD [address] [place] [id number] PCP - General Unknown Provider Specialty 09/13/21 Additional Source Comments The information contained in this document represents components of the legal health record. It is not the complete legal health record.[facility]
--- OUTSIDE RECORDS SUMMARY | 2024-09-29 10:38 | XMS_ITS | Clinical Summary ---
Author Organization [facility] Address [address] [place] [address] Care Team Providers Care Parliamentary Archivist Name Role Phone Theresa Hou MD Primary Care Prov ider Allergies Active Allergy Reactions Criticality Noted Date Comments Morphine 07/01/2022 Nsaids 07/01/2022 Medications Medication Sig Dispensed Refills Start Date End Date Status albuterol 108 (90 Base) MCG/ACT inhaler Inhale 2 puffs into the lungs every 6 (six) hours as needed for wheezing. 0 Active Fluticasone Furoate (Arnuity Ellipta) 200 MCG/ACT AEPB Inhale into the lungs. 0 Active clonazePAM (KlonoPIN) 0.25 mg split tablet Take 2 split tablet (0.5 mg total) by mouth 2 (two) times a day as needed for anxiety. 0 Active hydrOXYzine (ATARAX) 50 MG tablet Take 1 tablet (50 mg total) by mouth 3 (three) times a day as needed for itching. 0 Active baclofen (LIORESAL) 10 MG tablet Take 1 tablet (10 mg total) by mouth 3 (three) times a day. 0 Active albuterol (PROVENTIL) 2.5 MG/0.5ML NEBU nebulizer solution Take 0.5 mL (2.5 mg total) by nebulization. 0 Active Melatonin 5 MG TABS Take by mouth. 0 A ctive sertraline (ZOLOFT) 100 MG tablet Take 1 tablet (100 mg total) by mouth daily. 0 Active zileuton (ZYFLO CR) 600 MG CR tablet Take 2 tablets (1,200 mg total) by mouth 2 (two) times a day. 0 Active aspirin EC 325 MG tablet Take 1 tablet (325 mg total) by mouth every 6 (six) hours as needed for pain. 0 Active Fluticasone-Umeclidin- Vilant (TRELEGY ELLIPTA IN) Inhale into the lungs. 0 Active Reslizumab (CINQAIR IV) Inject into the vein. 0 Active Active Problems Problem Noted Date Diagnosed Date Leukopenia 08/16/2022 Social History Tobacco Use Types Packs/Day Years Used Date Smoking Tobacco: Never Assessed Sex and Gender Information Value Date Recorded Sex Assigned at Not on file Gender Identity Not on file Sexual Orientation Not on file Job Start Date Occupation Industry Not on file Not on file Not on file Last Filed Vital Signs Vital Sign Reading Time Taken Comments Blood Pressure 116/77 07/01/2022 11:43 AM EDT Pulse 99 07/01/2022 11:43 AM EDT Temperature 36.3 C (97.4 F) 07/01/2022 11:43 AM EDT Respiratory Rate - - Oxygen Saturation 96% 07/01/2022 11: 43 AM EDT Inhaled Oxygen Concentration - - Weight 110.9 kg (244 lb 6.4 oz) 023 11:43 AM EDT Height 160 cm (5' 3 ) 07/01/2022 11:43 AM EDT Body Mass Index 43.29 07/01/2022 11:43 AM EDT Plan of Treatment Health Maintenance Due Date Last Done Comments Hepatitis B Vaccines (1 of 3 - 3-dose series) 1971 Hepatitis C Screening 1971 COVID-19 Vaccine (#1) 03/12/1972 Depression Screening 1983 Preventative Health Evaluation 09/09/1989 Cervical Cancer Screening (Pap Smear) 09/09/1992 Colon Cancer Screening (Colonoscopy) 09/09/2016 Breast Cancer Screening (Mammogram) 09/09/2021 Shingrix-Zoster Vaccine (1 o f 2) 09/09/2021 Influenza Vaccine (#1) 2024 3, 02/14/2011 DTap / Tdap / Td (3 - Td or Tdap) 04/16/2032 04/16/2022, 06/19/2011 Pneumococcal Vaccine Aged Out No long er eligible based on patient's age to complete this topic RSV Ped < 20 months Aged Out No longe r eligible based on patient's age to complete this topic Care Teams Parliamentary Archivist Relationship Specialty Start Date End Date Theresa Hou MD [address] [place] [id number] PCP - General Internal Medicine 05/08/22
--- OUTSIDE RECORDS SUMMARY | 2024-09-29 10:38 | XMS_ITS | Clinical Summary ---
Author Organization [facility] [address] [place] [address] [place] [address] Phone Care Team Providers Care Language Specialist Name Role Phone Theresa Dhillon MD Primary Care Prov ider Allergies Active Allergy Reactions Criticality Noted Date Comments Dupilumab Fever 02/16/2024 Morphine Rash 12/05/2010 Other Reaction(s): Rash/Dermatitis Nsaids (Non-Steroidal Anti-Inflammatory Drug) Anaphylaxis High 12/05/2010 Sulfa (Sulfonamide Antibiotics) Rash 03/17/2012 Sulfa Drugs Other Reaction(s): Rash/Dermatitis Developed delayed rash to Bactrim and required 1d of hospitalization for it in 2001. Sulfamethoxazole-Trimeth oprim 05/20/2011 Bactrim Other Reaction(s): Rash/Dermatitis Trimethoprim 2020 Medications buPROPion SR (WELLBUTRIN SR) 100 mg 12 hr tablet 3 tablets (300 mg total) 1 (one) time each day. 12/03/19 23 Active cholecalciferol (VITAMIN D3) 1,250 mcg (50,000 unit) tablet Take 1 Tablet by mouth once a week. - Oral 04/24/19 23 Active clonazePAM (KlonoPIN) 0.5 mg tablet TAKE 1 TABLET BY MOUTH ONCE DAILY NEEDED 12/03/19 23 Active cloNIDine (CATAPRES) 0.3 mg tablet 1 (one) time each day in the evening. Active cyanocobalamin (VITAMIN B-12) 1,000 mcg/mL injection Inject 1 mL into the muscle every 30 days. Vitamin B12 1000 mcg q week x 4 weeks then q month 12/26/19 23 Active cyanocobalamin (VITAMIN B-12) 1,000 mcg/mL injection 11/21/19 23 Active EPINEPHrine (EpiPen 2-Luis A) 0.3 mg/0.3 mL injection Inject 0.3 mg into the muscle as needed for Other (anaphylactic reaction). Fill with whichever brand is covered by insurance. 07/11/19 23 Active estradioL-levonorg estreL (Climara Pro) 0.045-0.015 mg/[address] 1 Patch onto the skin once a week. 09/17/19 24 Active famotidine (PEPCID) 20 mg tablet Take 40 mg by mouth daily. Active HYDROXYZINE HCL ORAL Take 50 mg by mouth 3 (three) times a day if needed. Active levothyroxine (SYNTHROID, LEVOTHROID) 25 mcg tablet Take 1 tablet by mouth once daily 08/07/19 24 Active lisdexamfetamine (VYVANSE) 50 mg capsule Take 1 Capsule by mouth every morning. Active MULTIVITAMIN ORAL Take by mouth daily. Active ondansetron (ZOFRAN) 4 mg tablet 07/28/19 24 Active pantoprazole (PROTONIX) 40 mg EC tablet Take 1 Tab by mouth 2 times daily. 05/04/19 20 Active prazosin (MINIPRESS) 1 mg capsule Take 1 Capsule by mouth at bedtime. Active fluticasone-umecli dinium-vilanterol (Trelegy Ellipta) 200-62.5-25 mcg inhaler Inhale 1 Puff into the lungs daily. 09/06/19 21 Active zileuton CR (ZYFLO CR) 600 mg 12 hr tablet Take 2 Tabs by mouth 2 times daily. 04/16/19 18 Active gabapentin (NEURONTIN) 100 mg capsule Take 1 capsule (100 mg total) by mouth 3 (three) times a day for 7 days. 21 each 02/15/19 25 Active brimonidine 0.025 % drops Administer into affected eye(s) 1 (one) time each day. OU Active dexAMETHasone (DECADRON) 4 mg tablet Take 1 tablet (4 mg total) by mouth 2 (two) times a day for 5 days. 10 each 07/21/19 25 Active acetaminophen (TYLENOL) 500 mg tablet Take 1 tablet (500 mg total) by mouth. 01/17/20 20 Active albuterol 2.5 mg /3 mL (0.083 %) nebulizer solution USE 1 VIAL IN NEBULIZER EVERY 6 HOURS NEEDED 03/15/19 25 Active albuterol HFA (PROAIR HFA ; PROVENTIL HFA ; VENTOLIN HFA) 90 mcg/actuation inhaler Take 2 puffs by mouth every 6 (six) hours if needed. Active albuterol 2.5 mg/0.5 mL solution for nebulization nebulizer solution 0.5 mL (2.5 mg total). Active aspirin 325 mg EC tablet Take 1 tablet (325 mg total) by mouth daily. Active flunisolide (NASALIDE) 25 mcg (0.025 %) spray,non-aerosol 2 spray 08/23/19 17 Active fluticasone furoate (ARNUITY ELLIPTA) 200 mcg/actuation blister with device inhaler Inhale 1 puff by mouth 1 (one) time each day. 01/26/20 21 Active fluticasone furoate-vilanteroL (BREO ELLIPTA) 200-25 mcg/dose inhaler Inhale by mouth. Active melatonin 5 mg tablet Take 1 tablet (5 mg total) by mouth daily. 06/27/19 22 Active prednisoLONE acetate (PRED FORTE) 1 % ophthalmic suspension INSTILL 1 DROP INTO AFFECTED EYE THREE TIMES DAILY, STARTING 2 DAYS PRIOR TO SURGERY. CONTINUE DIRECTED Active suvorexant 10 mg tablet Take 10 mg by mouth daily. Max Daily Amount: 10 mg 08/17/19 25 Active tezepelumab-ekko (TEZSPIRE) 210 mg/1.91 mL (110 mg/mL) injection Inject 210 mg under the skin. 05/26/19 25 Active buPROPion SR (WELLBUTRIN SR) 150 mg 12 hr tablet TAKE 1 TABLET BY MOUTH ONCE EVERY MORNING DISCONTINUE BUPROPION SR 100 MG. WILL BE ON 150 MG DAILY FOR 14 DAYS, THEN INCREASE TO 300 MG DAILY 12/28/19 24 Active baclofen (LIORESAL) 10 mg tablet Take 1 tablet by mouth 3 times daily. - Oral 025 Discontin ued(Thera py completed ) nitroglycerin (NITROSTAT) 0.3 mg SL tablet 06/26/19 Discontin ued(Non-c ompliance ) ondansetron ODT (ZOFRAN-ODT) 4 mg disintegrating tablet Take 1 tablet by mouth every 8 hours as needed for Nausea for up to 20 doses. 09/05/19 Discontin ued(Dupli giuliana order) reslizumab (Cinqair) 10 mg/mL solution every 28 (twenty-eight) days. 12/27/19 Discontin ued(Thera py completed ) sertraline (ZOLOFT) 100 mg tablet Discontin ued(Presc riber Discontin ued) umeclidinium (Incruse Ellipta) 62.5 mcg/actuation inhalation 1 (one) time each day. Discontin ued(Non-c ompliance ) zafirlukast (ACCOLATE) 20 mg tablet Take 1 tablet by mouth 2 times daily. 09/25/19 Discontin ued(Non-c ompliance ) morphine (MSIR) 15 mg tablet Take 0.5 tablets (7.5 mg total) by mouth every 4 (four) hours if needed for severe pain for up to 10 doses. Max Daily Amount: 45 mg 5 tablet 02/15/19 Discontin ued(Thera py completed ) methocarbamoL (ROBAXIN) 750 mg tablet Take 1 tablet (750 mg total) by mouth 4 (four) times a day. 12 each 07/21/19 Discontin ued(Presc riber Discontin ued) amoxicillin (AMOXIL) 875 mg tablet Take 1 tablet (875 mg total) by mouth 2 (two) times a day. for 7 days 03/15/19 Discontin ued(Thera py completed ) azithromycin (ZITHROMAX) 250 mg tablet 04/05/19 25 Discontin ued(Thera py completed ) budesonide (PULMICORT) 0.5 mg/2 mL nebulizer solution 01/26/20 Discontin ued(Non-c ompliance ) losartan (COZAAR) 25 mg tablet Take 1 tablet (25 mg total) by mouth. Discontin ued(Non-c ompliance ) oxyCODONE-acetamin ophen (PERCOCET) 5-325 mg per tablet TAKE 1 TABLET BY MOUTH 4 TIMES DAILY FOR 7 DAYS Discontin ued(Thera py completed ) predniSONE (DELTASONE) 10 mg tablet TAKE 6 TABLETS BY MOUTH ONCE DAILY FOR 5 DAYS, AND THEN TAKE 5 TABS ONCE DAILY FOR 3 DAYS, AND THEN TAKE 4 TABS ONCE DAILY FOR 3 DAYS, AND THEN TAKE 3 TABS ONCE DAILY FOR 3 DAYS, AND THEN TAKE 2 TABS ONCE DAILY FOR 3 DAYS, AND 1 TAB ONCE DAILY FOR 5 DAYS Discontin ued(Thera py completed ) predniSONE (DELTASONE) 2.5 mg tablet Take 2 tablets (5 mg total) by mouth 1 (one) time each day. Discontin ued(Thera py completed ) predniSONE (DELTASONE) 20 mg tablet TAKE 3 TABLETS BY MOUTH DAILY FOR 3 DAYS, THEN 2 DAILY FOR 3 DAYS, THEN 1 DAILY FOR 3 DAYS Discontin ued(Thera py completed ) amLODIPine (NORVASC) 10 mg tablet Take 1 tablet (10 mg total) by mouth. Discontin ued(Non-c ompliance ) Active Problems Problem Noted Date Diagnosed Date Prediabetes 09/15/2024 Vitamin B12 deficiency 09/13/2024 Sacroiliitis, not elsewhere classified ([facility] V24) 08/31/2024 Assessment & Plan (08/31/2024 2:45 PM EDT): Ms. Borges describes left greater than right sided low back pain. She has been to physical therapy without relief. Acupuncture and stretching do not seem to help. She had significant relief with SI joint injections but as time is gone Sequent injections have not been as effective. She has pain with palpation over the left greater than right SI joint. Hip mechanical testing precipitated her symptoms on the left-hand side. She had a positive left SI joint compression test and a positive left-sided Gaenslen's test. She came to our office in hopes of discussing SI joint fusion. I explained that we do not perform that procedure but I was happy to get her a referral to Dr. Ramey in [place] who does. She was appreciative. Nephrolithiasis 12/01/2023 Overview (12/01/2023): lithotripsy Morbid obesity with BMI of 4 0.0-44.9, adult ([facility] V24, [facility] V28) 12/01/2023 Aspirin-sensitive asthma with nasal polyps 11/30 Postmenopausal bleeding 06/25/2022 Overview (12/01/2023): Last Assessment & Plan: I discussed potential causes of postmenopausal bleeding including trauma, atrophy, HRT and endometrial polyps, as well as less common but more concerning causes including endometrial hyperplasia and endometrial carcinoma. Recommend pelvic ultrasound, which was ordered today. Discussed recommendation for endometrial sampling, as well, particulary if the endometrial stripe measures >4mm on ultrasound. Given use of HRT I recommend EMB, which was performed today. We discussed postprocedure cramping and light bleeding. Advised to avoid anything in the vagina for three days. Advised to call with increasing pain, heavy bleeding, or fever. Pt will be informed of results when available. If EMB negative it is reasonable to continue with expectant management, however if she experiences any furthe bleeding my recommendation will be to discontinue HRT. Further evaluation may be needed at that time. She expressed understanding and all questions answered. Menopausal syndrome (hot flashes) 05/08/2022 Overview (12/01/2023): Last Assessment & Plan: Post-menopausal hormone therapy counselling: Delfin Parish Borges was counseled at length on the use of hormone replacement. Her medical history was reviewed with her. She does not have an estrogen dependent cancer, liver disease or history of VTE. I discussed the Women's Health Study, regarding the increased risk of breast cancer, heart disease, and DVT. These risks appeared to be increased after the fifth year of use, except for heart disease that may occur in the first year in women at risk. The benefits of HT I reviewed as well. We discussed that the goal of HRT is to improve hot flashes/night sweats. The other symptoms she is experiencing may not improve with HRT. I have advised her, that it is reasonable for her to be on HT for five years with minimal increased risk over baseline, at which time we may elect to wean her slowly so that we can get her off without too many withdrawal symptoms. She is happy with this plan and will be started on HRT today. Rx ClimaraPro provided. Hypothyroidism 04/23/2022 Congestive heart failure ([facility] V24, [facility] V 28) 2020 Overview (12/01/2023): Congestive heart failure Carpal tunnel syndrome on both sides 07/20/2020 Esophageal spasm 10/05/2018 Overview (12/01/2023): Response to sublingual nitroglycerin Last Assessment & Plan: No recent flares. Continue as needed sublingual nitroglycerin. 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 Continue twice daily budesonide rinse and aspirin therapy. Start Afrin 2-3 sprays each side twice daily for no more than 3 days. Start prednisone 40 mg daily for 5 days. Prescription for Augmentin x10 days provided if no improvement or any worsening in the next 2 days. GERD (gastroesophageal reflux disease) 7 OAB (overactive bladder) 01/12/2017 Nasal polyp, benign 05/08/2016 Overview (12/01/2023): Last Assessment & Plan: Excess dry secretions on exam. Suggest trial of adding either corn syrup and/or xylitol to NetiPot. Severe persistent asthma without complication ([facility] V28) 05/08/2016 Overview (12/01/2023): Last Assessment & Plan: Mild early exacerbation the setting of early sinusitis. Continue current asthma regimen. Increase albuterol as needed. Monitor improvement with steroids. When returns, we will discuss whether to continue with Fasenra or convert to IV Cinqar Renal mass 12/21/2012 Overview (12/01/2023): Seen by Dr. Pradhan (U). Noted since 2011. Last note in 2014 - no change in exophytic mass, likely a hemorrhagic cyst; no further imaging needed. Noted on [facility] ER noncontrast CT 12/07/2018: 2.9 x 4.7 cm exophytic mass right kidney; they referred her urgently to urology. Seen by Dr. Pradhan again on 12/10/2018, he recommended a follow-up CT with and without contrast on 12/23/2018. F/u in Jan 2019 - slight increase; rec yrly CT Gastroesophageal reflux disease with esophagitis 03/17/2012 Overview (12/01/2023): EGD October 2018 with mild Grade A esophagitis Last Assessment & Plan: Fortunately remains asymptomatic. Continue aggressive regimen as is. Osteopenia 03/17/2012 Overview (12/01/2023): DXA 12/2020: Tscore spine -1.1, tscore hip -0.6 Overweight 03/17/2012 Overview (12/01/2023): Overweight Cataract 06/19/2011 Glaucoma 06/19/2011 Overview (12/01/2023): Glaucoma Encounters Date Type Department Care Team Description 09/20/2024 Telephone Neurosurgery [facility] [address] [place] [address] Kanwal Stephens MA Follow-up 09/13/2024 12:30 PM EDT Office Visit Adult [address] [phone] Amanda Willard PA Fatigue, unspecified type (Primary Dx); Chronic daily headache; Vitamin D deficiency; Vitamin B12 deficiency; History of anemia; Morbid obesity with BMI of 40.0-44.9, adult ([facility] [place], [facility] V28) 09/12/[address] [facility] [address] [place], [place] [phone] Marlena Charles RN 08/31/2024 1:30 PM EDT Consult Neurosurgery [facility] [address] [place] [address] Karl Warren PA Sacrococcygeal disorders, not elsewhere classified; Sacroiliitis, not elsewhere classified ([facility] V24) 07/20/2024 3:38 PM EDT - 07/20/2024 6:53 PM EDT Emergency [facility] Emergency [address] [place] [address] Acute on chronic low back pain (Primary Dx) Discharge Disposition: Home or Self Care from Last 3 Months Immunizations Name Administration Dates Next Due HepB-CpG (Heplisav-B) 18yo and older 06/07/2024, 05/04/2024 Influenza trivalent, 0.5mL, preservative free (Fluarix; FluLaval; Fluzone) ages 6mo and older (Afluria) 3 years and older 03/17/2012,02/14/2011 Pneumococcal conjugate 21 va lent (CAPVAXIVE, PCV 21) 19yo and older 05/04/2024 Tdap Tetanus diptheria acell ular pertussis (Boostrix; Adacel) 7yo and older 04/16/2022,06/19/2011 Zoster recombinant (Shingrix) 19yo and older ,05/27/2022 Surgical History Surgery Date Site/Laterality Comments ENDOMETRIAL ABLATION 2005 PROCEDURE: OK ENDOMETRIAL ABLTJ THERMAL W/O HYSTEROSCOPIC GUID SINUS SURGERY PROCEDURE: OK UNLISTED PROCEDURE ACCESSORY SINUSES; COMMENT: Polyp recurrence TUBAL LIGATION PROCEDURE: HISTORICAL TUBAL LIGATION OTHER SURGICAL HISTORY PROCEDURE: HISTORICAL MELANOMA MOLE REMOVAL 03/2014 PROCEDURE: HISTORICAL MOLE (REMOVAL OF)/ UPPER RIGHT BICEP/MELANOMA MYOMECTOMY 2014 Left PROCEDURE: OK LAPS MYOMECTOMY EXC 1-4 MYOMAS 250 GM/<; COMMENT: left broad ligament myoma (presented as pelvic mass) HYSTEROSCOPY 11/07/2014 PROCEDURE: OK HYSTEROSCOPY BX ENDOMETRIUM&/POLYPC W/WO D&C; COMMENT: removal of endometrial polyp ESOPHAGOGASTRODUODENOSCOPY 07/22/2016 PROCEDURE: OK ESOPHAGOGASTRODUODENOSCOPY TRANSORAL DIAGNOSTIC; COMMENT: Dr. Toro at [facility] -mild esophagitis, mild duodenitis, H. pylori negative LITHOTRIPSY PROCEDURE: HISTORICAL LITHOTRIPSY OTHER SURGICAL HISTORY Left PROCEDURE: OK REPAIR PRIMARY OPEN/PRQ RUPTURED ACHILLES TENDON; COMMENT: Associated with Quinolones ESOPHAGOGASTRODUODENOSCOPY 10/18/2018 PROCEDURE: OK ESOPHAGOGASTRODUODENOSCOPY TRANSORAL DIAGNOSTIC; COMMENT: Dr Aponte, [facility] - esophagitis, gastritis, duodenitis CARPAL TUNNEL RELEASE 09/17/2020 Right PROCEDURE: OK NEUROPLASTY &/TRANSPOS MEDIAN NRV CARPAL TUNNE; COMMENT: Right endoscopic CTR with Dr. Sood CARPAL TUNNEL RELEASE 07/23/2020 Left PROCEDURE: OK NEUROPLASTY &/TRANSPOS MEDIAN NRV CARPAL TUNNE; COMMENT: Left endoscopic CTR with Dr. Sood COLONOSCOPY 06/10/2021 PROCEDURE: HISTORICAL COLONOSCOPY EYE SURGERY Bilateral CATARACT Medical History Medical History Date Comments Nephrolithiasis 2009 DX:Nephrolithias is; COMMENT: lithotripsy History of malignant melanoma of skin DX:History of malignant melanoma of skin; COMMENT: Malignant melanoma 2007 right deltoid (no adjunctive therapy or sentinel nodes done ... excised while living in [place]) Aspirin-sensitive asthma wit h nasal polyps 03/07/2015 DX:Aspirin-sensitive asthma with nasal polyps Cataract 06/19/2011 DX:Cataract Glaucoma 06/19/2011 DX:Glaucoma Osteopenia DX:Osteopenia Renal mass 12/21/2012 DX:Renal mass; C OMMENT: Being followed by Dr. Boswell ([facility] Essential hypertension 06/11/2017 DX:Essent ial hypertension GERD (gastroesophageal reflux disease) 7 DX:GERD (gastroesophageal reflux disease) OAB (overactive bladder) 01/12/2017 DX:OAB (overactive bladder) History of Clostridium diffi cile infection 03/06/2017 DX:History of Clostridium di fficile infection; COMMENT: 12/2016- 02/2017 Vancomycin Rx, Probiotic bid Vitamin D deficiency 03/16/2018 DX:Vitamin D deficiency Anxiety 03/16/2018 DX:Anxiety Depression 03/16/2018 DX:Depression Achilles tendon rupture 03/16/2018 DX:Achil les tendon rupture; COMMENT: Associated with Quinolones, repaired Severe persistent asthma ([facility] V[facility]) 8 DX:Severe persistent asthma; COMMENT: 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 [facility] Peptic ulcer disease 03/16/2018 DX:Peptic u lcer disease Morbid obesity with BMI of 4 0.0-44.9, adult ([facility], [facility] V28) 10/04/2019 DX:Morbid obesity wit h BMI of 40.0-44.9, adult ([facility]) Vitamin B deficiency Melanoma ([facility], [facility] V28) BACK LESION Disease of thyroid gland Hypothyroidism Adhd Prediabetes 09/15/2024 Family History Medical History Relation Name Comments Heart attack Father or before 40 y/ o Ovarian cancer Maternal Grandmother Uterine cancer Maternal Grandmother Glauc she, Cataract Asthma Mother Polypharmacy- c ause of Breast cancer Mother's side m. aunt aunt, bilater al Colon cancer Neg Hx Relation Name Status Comments Father Alive Maternal Grandmother Mother Mother's side m. aunt Social History Tobacco Use Types Packs/Day Years Used Date Smoking Tobacco: Former Cigarettes Q uit: 12/05/1992 Smokeless Tobacco: Never Tobacco Cessation:Counseling Given: Not Answered Alcohol Use Standard Drinks/Week Comments Not Currently 0 (1 standard drink = 0.6 oz pur e alcohol) Housing Instability Answer Date Recorde d Are you worried that in the next 2 months you may not have stable housing? No 09/13/2024 Food Access & Nutrition Answer Date Rec orded Do you have access to a vari ety of food including fruits and vegetables? Yes 09/13/2024 Health Literacy Answer Date Recorded How often do you need to hav e someone help you when you read instructions, pamphlets, or other written material from your doctor or pharmacy? Never 09/13/2024 Caregiver: How often do you need to have someone help you when you read instructions, pamphlets, or other written material from your doctor or pharmacy? Not on file 09/13/2024 Financial Risk Answer Date Recorded How hard is it for you to pa y for the very basics like food, housing, medical care, and air conditioning / heating? Not very hard 09/13/2024 Transportation Answer Date Recorded Has the lack of transportati on kept you from meetings, work, or from getting things needed for daily living? No Has the lack of transportati on kept you from medical appointments or from getting medications? No 09/13/2024 Social Isolation Answer Date Recorded How often do you feel lonely or isolated from th ose around you? Never 09/13/2024 Food Risk Answer Date Recorded Within the past 12 months we worried whether our food would run out before we got money to buy more. Not on file 09/13/2024 Within the past 12 months th e food we bought just didn't last and we didn't have money to get more. Never true 09/13/2024 Dependent Care Answer Date Recorded Do you need help finding or paying for care for your loved ones. For example, child development director or elderly care for an older adult? No 09/13/2024 Education Answer Date Recorded Do you think completing more education or training, like finishing a GED, going to college, or learning a trade, would be helpful for you? No 09/13/2024 Employment and Income Answer Date Recor ded During the last four weeks, have you been actively looking for work? No 09/13/2024 Living Situation Answer Date Recorded What is your living situation? 0 09/13/2024 Interpersonal Safety Answer Date Record ed Physical Abuse 05/03/2024 Verbal Abuse 05/03/2024 Comments No Sex and Gender Information Value Date Recorded Sex Assigned at Female 02/16/2024 3:27 PM EST Legal Sex Female 1:11 PM EST Gender Identity Female 02/16/2024 3:27 PM EST Sexual Orientation Straight 02/16/2024 3: 27 PM EST Obstetrics History Last Filed Vital Signs Vital Sign Reading Time Taken Comments Blood Pressure 137/80 09/13/2024 12:26 PM EDT Pulse 104 09/13/2024 12:26 PM EDT Temperature 35.8 C (96.4 F) 09/13/2024 12:26 PM EDT Respiratory Rate 14 09/13/2024 12:26 PM EDT Oxygen Saturation 96% 09/13/2024 12:26 PM EDT Inhaled Oxygen Concentration - - Weight 104 kg (229 lb) 09/13/2024 12:26 PM EDT Height 160 cm (5' 3 ) 09/13/2024 12:26 PM EDT Body Mass Index 40.57 09/13/2024 12:26 PM EDT Plan of Treatment Upcoming Encounters Date Type Department Care Team (Late st Contact Info) Description 10/21/2024 1:10 PM EDT Appointment Radiology Department - [address] [phone] 10/25/2024 1:30 PM EDT Procedure visit General Surgery [facility] [address] [phone] Sidney Nguyễn MD [address] [address] 12/15/2024 12:30 PM EST Office Visit Adult Medicine [address] [phone] Theresa Dhillon MD [address] [place] [phone] Health Maintenance Due Date Last Done Comments Medicare Annual Wellness Visit 01/18/2022 Influenza Vaccine (#1) 2024 03/17/2012, 2011 Hypertension/CHF/CAD Annual BMP Blood Test 09/13/2025 09/13/2024, 04/23/2022, 02/12/2021, Additional history exists Social Influencers of Health Screening 09/13/2025 09/13/2024 Breast Cancer Screening 10/08/2025 10/09/19 24, 10/09/2023, 10/03/2022, Additional history exists Cholesterol Screening (Lipid Panel) 04/24/2027 04/23/2022 Cervical Cancer Screening: HPV 09/16/2028 09/17/2023 Colorectal Cancer Screening: Colonoscopy 06/11/2031 06/10/2021 DTaP,Tdap,and Td Vaccines (3 - Td or Tdap) 04/16/2032 04/16/2022, 06/19/2011 HIV Screening Completed 01/11/2014 Hepatitis C Screening Completed 12/23/2016 COVID-19 Vaccine Discontinued 12/25/2021, , 05/06/2020, Additional history exists Zoster Vaccines Completed 07/29/2022, 05/27/2022 Pneumococcal Vaccine: 50+ Years Completed 05/04/2024 Hepatitis B Vaccines Completed 06/07/2024, 05/05/19 25 Depression Screening Completed 09/13/2024, 09/21/19 24 HIB Vaccines Aged Out No longer eligi ble based on patient's age to complete this topic HPV Vaccines Aged Out No longer eligi ble based on patient's age to complete this topic Hepatitis A Vaccines Aged Out No long er eligible based on patient's age to complete this topic IPV Vaccines Aged Out No longer eligi ble based on patient's age to complete this topic MMR Vaccines Aged Out No longer eligi ble based on patient's age to complete this topic Meningococcal [facility] Vaccine Aged Out N o longer eligible based on patient's age to complete this topic Meningococcal B Vaccine Aged Out No l onger eligible based on patient's age to complete this topic RSV Immunization Patients Under 20 months Aged Out No longer eligible based on patient's age to complete this topic Varicella Vaccines Aged Out No longer eligible based on patient's age to complete this topic Procedures Procedure Name Priority Date/Time Associated Diagnosis Comments HEMOGLOBIN A1C Routine 09/14/2024 12:14 PM EDT Elevated glucose CBC WITH AUTO DIFFERENTIAL Routine 09/13/2024 1:12 PM EDT Fatigue, unspecified type Vitamin B12 deficiency THYROID STIMULATING HORMONE WITH REFLEX TO FREE T4 AND FREE T3 Routine 09/13/2024 1:12 PM EDT Fatigue, unspecified type Vitamin B12 deficiency FERRITIN Routine 09/13/2024 1:12 PM EDT Fatigue, unspecified type Vitamin B12 deficiency History of anemia FOLATE Routine 09/13/2024 1:12 PM EDT Fatigue, unspecified type Vitamin B12 deficiency IRON AND TIBC Routine 09/13/2024 1:12 PM EDT Fatigue, unspecified type Vitamin B12 deficiency History of anemia VITAMIN B12 Routine 09/13/2024 1:12 PM EDT Fatigue, unspecified type Vitamin B12 deficiency VITAMIN D 25 HYDROXY Routine 09/13/2024 1:12 PM EDT Fatigue, unspecified type Vitamin D deficiency Vitamin B12 deficiency COMPREHENSIVE METABOLIC PANEL Routine 09/13/2024 1:12 PM EDT Fatigue, unspecified type Vitamin B12 deficiency CBC AND DIFFERENTIAL Routine 09/13/2024 1:12 PM EDT Fatigue, unspecified type Vitamin B12 deficiency MR LUMBAR SPINE WO CONTRAST STAT 07/20/2024 5:14 PM EDT SCREENING MAMMOGRAPHY BI 2-VIEW BREAST INC CAD Routine 10/09/2023 2:20 PM EDT Encounter for screening mammogram for malignant neoplasm of breast DEPRESSION SCREENING Routine 09/21/2023 HPV Routine 09/17/2023 LIPID PANEL Routine 04/23/2022 COLONOSCOPY Routine 06/10/2021 HEPATITIS C SCREENING Routine 12/23/2016 HIV SCREENING Routine 01/11/2014 from Last 3 Months or Most Recently Relevant to Health Maintenance Results * Hemoglobin A1c (09/14/2024 12:14 PM EDT) Hemoglobin A1C 6.2 <6.5 % LAB CHEMISTRY METHOD 09/14/2024 9:17 PM EDT [facility] Mean Bld Glu Estim. 131 mg/dL LAB CHEMISTRY METHOD 09/14/2024 9:17 PM EDT [facility] Blood Venous blood specimen / Unknown Venipuncture / Unknown 09/14/2024 12:14 PM EDT 09/14/2024 12:14 PM EDT Amanda HARRINGTON LAB BLOOD ORDERABLES Final Resu lt Performing Organization Address [facility]/ZIP Co de Phone Number [facility] [address] [place] [address], [place] [phone] * Thyroid stimulating hormone with reflex to free t4 and free t3 (09/13/2024 1:12 PM EDT) [facility] TSH 1.97 0.40 - 4.00 mcIU/mL LAB CHEMISTRY METHOD 09/13/2024 6:48 PM EDT [facility] Blood Venous blood specimen / Unknown Venipuncture / Unknown 09/13/2024 1:12 PM EDT 09/13/2024 1:12 PM EDT Amanda HARRINGTON LAB BLOOD ORDERABLES Final Resu lt Performing Organization Address [facility]/ZIP Co de Phone Number [facility] [address] [place] [address], [place] [phone] * (ABNORMAL) CBC auto differential (09/13/2024 1:12 PM EDT) [facility] WBC 6.0 4.8 - 10.8 K/mcL LAB HEMETOLOGY METHOD 09/13/2024 4:52 PM EDT [facility] RBC 4.90(H) 3.80 - 4.80 M/mcL LAB HEMETOLOGY METHOD 09/13/2024 4:52 PM EDT [facility] Hemoglobin 14.1 11.5 - 16.0 g/dL LAB HEMETOLOGY METHOD 09/13/2024 4:52 PM EDT [facility] Hematocrit 45.1 35.0 - 47.0 % LAB HEMETOLOGY METHOD 09/13/2024 4:52 PM EDT [facility] MCV 92.8 79.0 - 98.0 FL LAB HEMETOLOGY METHOD 09/13/2024 4:52 PM [facility] MCH 29.0 27.0 - 32.0 pcg LAB HEMETOLOGY METHOD 09/13/2024 4:52 PM [facility] MCHC 31.3(L) 32.0 - 37.0 g/dL LAB HEMETOLOGY METHOD 09/13/2024 4:52 PM [facility] RDW 13.4 11.0 - 15.0 % LAB HEMETOLOGY METHOD 09/13/2024 4:52 PM [facility] Platelets 251 130 - 400 K/mcL LAB HEMETOLOGY METHOD 09/13/2024 4:52 PM [facility] MPV 10.2 7.0 - 11.0 FL LAB HEMETOLOGY METHOD 09/13/2024 4:52 PM [facility] NRBC 0.0 <1.0 % LAB HEMETOLOGY METHOD 09/13/2024 4:52 PM [facility] NRBC Absolute 0.00 <0.10 K/mcL LAB HEMETOLOGY METHOD 09/13/2024 4:52 PM [facility] Neutrophils Relative 76.7 % LAB HEMETOLOGY METHOD 09/13/2024 4:52 PM [facility] Lymphocytes Relative 14.8 % LAB HEMETOLOGY METHOD 09/13/2024 4:52 PM [facility] Monocytes Relative 7.5 % LAB HEMETOLOGY METHOD 09/13/2024 4:52 PM [facility] Eosinophils Relative 0.3 % LAB HEMETOLOGY METHOD 09/13/2024 4:52 PM [facility] Basophils Relative 0.5 % LAB HEMETOLOGY METHOD 09/13/2024 4:52 PM EDT [facility] Immature Granulocytes Relative 0.2 % LAB HEMETOLOGY METHOD 09/13/2024 4:52 PM EDT [facility] Neutrophils Absolute 4.62 1.50 - 7.00 K/mcL LAB HEMETOLOGY METHOD 09/13/2024 4:52 PM EDT [facility] Lymphocytes Absolute 0.89(L) 1.00 - 5.00 K/mcL LAB HEMETOLOGY METHOD 09/13/2024 4:52 PM EDT [facility] Monocytes Absolute 0.45 0.20 - 1.00 K/mcL LAB HEMETOLOGY METHOD 09/13/2024 4:52 PM EDT [facility] Eosinophils Absolute 0.02 0.00 - 0.50 K/mcL LAB HEMETOLOGY METHOD 09/13/2024 4:52 PM EDT [facility] Basophils Absolute 0.03 0.00 - 0.20 K/mcL LAB HEMETOLOGY METHOD 09/13/2024 4:52 PM EDT [facility] Immature Granulocytes Absolute 0.01 0.00 - 0.03 K/mcL LAB HEMETOLOGY METHOD 09/13/2024 4:52 PM EDT [facility] Blood Venous blood specimen / Unknown Venipuncture / Unknown 09/13/2024 1:12 PM EDT 09/13/2024 1:12 PM EDT us Amanda HARRINGTON LAB BLOOD ORDERABLES Final Resu lt [facility] [address] [place] [address], * Iron and TIBC (09/13/2024 1:12 PM EDT) [facility] Signature Iron 113 40 - 150 mcg/dL LAB CHEMISTRY METHOD 09/13/2024 5:10 PM EDT [facility] TIBC 374 250 - 450 mcg/dL LAB CHEMISTRY METHOD 09/13/2024 5:10 PM EDT [facility] Iron Saturation 30 15 - 50 % LAB CHEMISTRY METHOD 09/13/2024 5:10 PM EDT [facility] Blood Venous blood specimen / Unknown Venipuncture / Unknown 09/13/2024 1:12 PM EDT 09/13/2024 1:12 PM EDT Amanda HARRINGTON LAB BLOOD ORDERABLES Final Resu lt Performing Organization Address [facility]/ZIP Co de Phone Number [facility] [address] [place] [address], [place] [phone] * Vitamin D 25 hydroxy (09/13/2024 1:12 PM EDT) Vit D, 25-Hydroxy 67.6 30.0 - 80.0 ng/mL LAB CHEMISTRY METHOD 09/13/2024 6:08 PM EDT [facility] Blood Venous blood specimen / Unknown Venipuncture / Unknown 09/13/2024 1:12 PM EDT 09/13/2024 1:12 PM EDT Amanda HARRINGTON LAB BLOOD ORDERABLES Final Resu lt Performing Organization Address City/[facility]/ZIP Co de Phone Number [facility] [address] [place] [address], [place] [phone] * (ABNORMAL) Folate (09/13/2024 1:12 PM EDT) Folate >20.0(H) 2.8 - 17.0 ng/ml LAB CHEMISTRY METHOD 09/13/2024 5:32 PM EDT [facility] Blood Venous blood specimen / Unknown Venipuncture / Unknown 09/13/2024 1:12 PM EDT 09/13/2024 1:12 PM EDT Amanda HARRINGTON LAB BLOOD ORDERABLES Final Resu lt Performing Organization Address [facility] Co de Phone Number [facility] [address] [place] [address], [place] [phone] * Ferritin (09/13/2024 1:12 PM EDT) [facility] Ferritin 129 8 - 252 ng/mL LAB CHEMISTRY METHOD 09/13/2024 5:32 PM EDT [facility] Blood Venous blood specimen / Unknown Venipuncture / Unknown 09/13/2024 1:12 PM EDT 09/13/2024 1:12 PM EDT Amanda HARRINGTON LAB BLOOD ORDERABLES Final Resu lt Performing Organization Address [facility] Co de Phone Number [facility] [address] [place] [address], [place] [phone] * Vitamin B12 (09/13/2024 1:12 PM EDT) [facility] Vitamin B-12 602 250 - 900 pcg/mL LAB CHEMISTRY METHOD 09/13/2024 5:32 PM EDT [facility] Blood Venous blood specimen / Unknown Venipuncture / Unknown 09/13/2024 1:12 PM EDT 09/13/2024 1:12 PM EDT Amanda HARRINGTON LAB BLOOD ORDERABLES Final Resu lt Performing Organization Address [facility]/ZIP Co de Phone Number [facility] [address] [place] [address], [place] [phone] * (ABNORMAL) Comprehensive metabolic panel (09/13/2024 1:12 PM EDT) [facility] Sodium 142 133 - 145 mmol/L LAB CHEMISTRY METHOD 09/13/2024 5:10 PM [facility] Potassium 3.9 3.5 - 5.5 mmol/L LAB CHEMISTRY METHOD 09/13/2024 5:10 PM [facility] Chloride 108 96 - 110 mmol/L LAB CHEMISTRY METHOD 09/13/2024 5:10 PM [facility] CO2 31 21 - 32 mmol/L LAB CHEMISTRY METHOD 09/13/2024 5:10 PM [facility] Anion Gap 3 3 - 11 LAB CHEMISTRY METHOD 09/13/2024 5:10 PM [facility] Glucose 137(H) 70 - 100 mg/dL LAB CHEMISTRY METHOD 09/13/2024 5:10 PM [facility] BUN 16 5 - 25 mg/dL LAB CHEMISTRY METHOD 09/13/2024 5:10 PM [facility] Creatinine 0.94 0.50 - 1.10 mg/dL LAB CHEMISTRY METHOD 09/13/2024 5:10 PM [facility] eGFR 73 >=60 mL/min/1. 73m2 LAB CHEMISTRY METHOD 09/13/2024 5:10 PM [facility] Comment:Calculation based on the Chronic Kidney Disease Epidemiology Collaboration (CKD-EPI) equation refit without adjustment for race. BUN/Creatinine Ratio 17.0 LAB CHEMISTRY METHOD 09/13/2024 5:10 PM [facility] Calcium 9.6 8.5 - 10.5 mg/dL LAB CHEMISTRY METHOD 09/13/2024 5:10 PM [facility] AST (SGOT) 16 10 - 42 unit/L LAB CHEMISTRY METHOD 09/13/2024 5:10 PM [facility] ALT (SGPT) 39 10 - 60 unit/L LAB CHEMISTRY METHOD 09/13/2024 5:10 PM [facility] Alkaline Phosphatase 65 42 - 121 unit/L LAB CHEMISTRY METHOD 09/13/2024 5:10 PM EDT [facility] Total Protein 6.6 6.0 - 8.0 g/dL LAB CHEMISTRY METHOD 09/13/2024 5:10 PM EDT [facility] Albumin 4.1 3.2 - 5.0 g/dL LAB CHEMISTRY METHOD 09/13/2024 5:10 PM EDT [facility] Total Bilirubin 0.8 0.0 - 1.4 mg/dL LAB CHEMISTRY METHOD 09/13/2024 5:10 PM EDT [facility] Blood Venous blood specimen / Unknown Venipuncture / Unknown 09/13/2024 1:12 PM EDT 09/13/2024 1:12 PM EDT us Amanda HARRINGTON LAB BLOOD ORDERABLES Final Resu lt [facility] [address] [place] [address], [place] [phone] * MR Lumbar Spine wo Contrast (07/20/2024 5:14 PM EDT) Anatomical Region Laterality Modality L-spine, Spine Magnetic Resonan ce 07/20/2024 5:40 PM EDT Impressions 07/20/2024 5:44 PM EDT Lower lumbar predominant degenerative disc and facet changes are similar compared to 05/21/2023. No significant foraminal or spinal canal stenosis. -------- FINAL REPORT -------- Dictated By: DEAN RAINES Dictated Date: 07/20/2024 17:40 ET Assigned Physician: DEAN RAINES Reviewed and Electronically Signed By: DEAN RAINES Signed Date: 07/20/2024 17:44 ET Workstation ID: [id number] Transcribed By: Self Edit Transcribed Date: 07/20/2024 17:40 ET Narrative 07/20/2024 5:44 PM EDT PROCEDURE: Lumbar spine MRI INDICATION: Pain TECHNIQUE: Multiplanar, multisequence MRI of the Lumbar spine Without contrast. COMPARISON: 05/21/2023 FINDINGS: Mild anterolisthesis at L5-S1 related to degenerative facet arthritis. Levoconvex thoracolumbar curvature. No fracture or suspicious marrow replacing lesion. Mild lower lumbar predominant degenerative loss of normal disc height and signal dissociated degenerative endplate spurring, most pronounced at L4-5. Severe lower lumbar predominant facet arthritis, most pronounced at L5-S1 bilaterally as well as L4-5 on the left. Conus medullaris is normal and terminates at L2. No epidural collection or mass is seen within the spinal canal. Paraspinal muscles are within normal limits. Visualized intra-abdominal and pelvic structures are normal. Unchanged Tarlov cysts. Findings by level: L1-2: No focal disc protrusion, foraminal stenosis, or spinal canal stenosis. L2-3: No focal disc protrusion, foraminal stenosis, or spinal canal stenosis. L3-4: No focal disc protrusion, foraminal stenosis, or spinal canal stenosis. L4-5: Central annular tear. Diffuse disc bulge with endplate spurring. Mild foraminal stenosis bilaterally. No spinal canal stenosis. Findings are similar compared to prior. L5-S1: Anterolisthesis with posterior disc uncovering. Bilateral facet arthropathy with ligamentum flavum thickening. No foraminal or spinal canal stenosis. Procedure Note Dean Raines MD - 07/20/2024 PROCEDURE: Lumbar spine MRI INDICATION: Pain TECHNIQUE: Multiplanar, multisequence MRI of the Lumbar spine Withoutcontrast. COMPARISON: 05/21/2023 FINDINGS: Mild anterolisthesis at L5-S1 related to degenerative facet arthritis.Levoconvex thoracolumbar curvature. No fracture or suspicious marrow replacing lesion. Mild lower lumbar predominant degenerative loss of normal disc height andsignal dissociated degenerative endplate spurring, most pronounced atL4-5. Severe lower lumbar predominant facet arthritis, most pronounced at L5- [id number] as well as L4-5 on the left. Conus medullaris is normal and terminates at L2. No epidural collectionor mass is seen within the spinal canal. Paraspinal muscles are within normal limits. Visualized intra-abdominaland pelvic structures are normal. Unchanged Tarlov cysts. Findings by level: L1-2: No focal disc protrusion, foraminal stenosis, or spinal canalstenosis. L2-3: No focal disc protrusion, foraminal stenosis, or spinal canalstenosis. L3-4: No focal disc protrusion, foraminal stenosis, or spinal canalstenosis. L4-5: Central annular tear. Diffuse disc bulge with endplate spurring.Mild foraminal stenosis bilaterally. No spinal canal stenosis. Findingsare similar compared to prior. L5-S1: Anterolisthesis with posterior disc uncovering. Bilateral facetarthropathy with ligamentum flavum thickening. No foraminal or spinalcanal stenosis. IMPRESSION: Lower lumbar predominant degenerative disc and facet changes are similarcompared to 05/21/2023. No significant foraminal or spinal canalstenosis. -------- FINAL REPORT -------- Dictated By: DEAN RAINES Dictated Date: 07/20/2024 17:40 ET Assigned Physician: DEAN RAINES Reviewed and Electronically Signed By: DEAN RAINES Signed Date: 07/20/2024 17:44 ET Workstation ID: [id number] Transcribed By: Self Edit Transcribed Date: 07/20/2024 17:40 ET us Dary HARRINGTON IMG MRI PROCEDURES Final Resu lt * SCREENING MAMMOGRAPHY BI 2-VIEW BREAST INC CAD (10/09/2023 2:20 PM EDT) Anatomical Region Laterality Modality Radiographic Apolonia ging 10/03/2022 2:16 PM EDT Narrative 10/13/2023 9:48 AM EDT This is a summary report. The complete report is available in the patient's medical record. If you cannot access the medical record, please contact the sending organization for a detailed fax or copy. Exam: Screening mammogram Findings: Digital bilateral full-field screening mammography is performed with tomosynthesis and interpreted with the aid of computer-aided detection. Comparison is made with 10/03/2022 and as far back as 09/27/2019. Breast parenchyma is composed of scattered fibroglandular densities. No new suspicious mass, architectural distortion, or suspicious calcifications. Impression: No mammographic evidence of malignancy. BI-RADS 1 - negative Procedure Note Omaira Morin MD - 11/25/2023 This is a summary report. The complete report is available in thepatient's medical record. If you cannot access the medical record, pleasecontact the sending organization for a detailed fax or copy. Exam: Screening mammogram Findings: Digital bilateral full-field screening mammography is performedwith tomosynthesis and interpreted with the aid of computer-aideddetection. Comparison is made with 10/03/2022 and as far back as09/27/2019. Breast parenchyma is composed of scattered fibroglandular densities. Nonew suspicious mass, architectural distortion, or suspiciouscalcifications. Impression: No mammographic evidence of malignancy. BI-RADS 1 - negative Result [facility] Amanda HARRINGTON IMG XR PROCEDURES Final Result * Depression Screening (09/21/2023) [facility] Depression Screening Abstracted Result [facility] HEALTH MAINTENANCE Final Result * Cervical Cancer Screening: HPV (09/17/2023) [facility] Cervical Cancer Screening: HPV Negative, Abstracted Result [facility] HEALTH MAINTENANCE Final Result * (ABNORMAL) Lipid panel (04/23/2022) [facility] LDL/HDL Ratio 4 0 - 4 Triglycerides 225(A) 0 - 150 mg/dL Cholesterol 213(A) 0 - 200 mg/dL HDL 61 >=40 mg/dL LDL Cholesterol 107(A) 0 - 100 mg/dL Blood Venous blood specimen / Unknown Result [facility] LAB BLOOD ORDERABLES Sandra l Result * Colonoscopy (06/10/2021) [facility] Colonoscopy No Interpretation , Abstracted Anatomical Region Laterality Modality Other Result [facility] HEALTH MAINTENANCE Final Result * Hepatitis C Screening (12/23/2016) [facility] Hepatitis C Screening Abstracted Result [facility] HEALTH MAINTENANCE Final Result * HIV Screening (01/11/2014) HIV Screening Abstarcted us Historical Provider HEALTH MAINTENANCE Final Result from Last 3 Months or Most Recently Relevant to Health Maintenance Insurance MEDICARE [place]ICAID [place] Care Teams Language Specialist Relationship Specialty Start Date End Date Theresa Dhillon MD [address] [place] [address] [phone] PCP - General Internal Medicine 02/16/24
== END 2024-09-29 10:12 | disposition home or self-care (01) ==
LOC: HO.HNS 09:29
PROVIDERS: Referring Provider Physician Assistant; Visit Provider Physician Assistant
DX: M53.3 Sacrococcygeal disorders, not elsewhere classified (principal); G89.29 Other chronic pain
CPT/HCPCS: 99204

== ENCOUNTER → 2024-09-29 09:28 | Outpatient (BNVA) | payer MEDICARE, MEDICAID, SELFPAY | PROVIDERS: Referring Provider Physician Assistant; Visit Provider Physician Assistant | DX: M53.3 Sacrococcygeal disorders, not elsewhere classified (principal); G89.29 Other chronic pain | CPT/HCPCS: 99202 ==

== ENCOUNTER 2024-11-11 08:52 | Outpatient (AMB) | payer MEDICARE, MEDICAID, SELFPAY ==
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
--- OUTSIDE RECORDS SUMMARY | 2024-11-09 11:00 | XMS_ITS | Encounter Summary ---
Author Organization [facility] Address [address] [place] [phone] Phone Care Team Providers Care Graphite Pan Drier Tender Name Role Phone Theresa Dhillon MD Primary Care Prov ider Reason for Visit * Treatment and Therapy Plan (Routine) - Authorized Specialty Diagnoses / Procedures Referred By Contac t Referred To Contact Infusion Therapy Diagnoses B12 only per pt 06/16/2024 appt changed Procedures B12 INFUSION - OTHER Lenny Kirby MD Phone: tel: fax: [email or web address] [facility] Medical Infusion Center [address] [place] [phone] Phone: tel: fax: Referral ID Status Reason Start Date Expiration Date V isits Requested Visits Authorized [id number] Authorized 07/20/2024 07/20/2038 99 99 Encounter Details Date Type Department Care Team (Late st Contact Info) Description 11/09/2024 11:00 AM EDT Infusion [facility] Medical Infusion Center [address] [place] [phone] Lenny Kirby MD [address] [place] [phone] [email or web address] B12 deficiency (Primary Dx) Social History Tobacco Use Types Packs/Day Years Used Date Smoking Tobacco: Former Cigarettes - 1991 Smokeless Tobacco: Never Comments:Cigar once a [...] AM EDT documented as of this encounter Last Filed Vital Signs Vital Sign Reading Time Taken Comments Blood Pressure 123/82 11/09/2024 11:00 AM EDT Pulse 88 11/09/2024 11:00 AM EDT Temperature 37 C (98.6 F) 11/09/2024 11:00 AM EDT Respiratory Rate 20 11/09/2024 11:00 AM EDT Oxygen Saturation 97% 11/09/2024 11:00 AM EDT Inhaled Oxygen Concentration - - Weight - - Height - - Body Mass Index - - documented in this encounter Progress Notes * Ruth Adams RN - 11/09/2024 11:00 AM EDT Pt here for B12 injection and tolerated well. documented in this encounter Plan of Treatment Upcoming Encounters Date Type Department Care Team (Late st Contact Info) Description 11/30/2024 11:30 AM EDT Nutrition [facility] Surgical [facility] [address] [place] [address] Isadora Valdivia LDN [address] [place]. [address] [place] [phone] 12/07/2024 11:00 AM EDT Infusion [facility] Infusion [address] [address] Lenny Kirby MD [address] [place] [address] [phone] [email or web address] 12/14/2024 1:30 PM EST Office Visit [facility] [address] [place] [phone] Divya Pan, LAB TESTER [address] [address] 01/04/2025 11:00 AM EST Infusion [facility] Infusion [address] [address] Lenny Kirby MD [address] [place] [address] [phone] [email or web address] 02/03/2025 11:00 AM EST Infusion [facility] Infusion [address] [address] Lenny Kirby MD [address] [place] [address] [phone] documented as of this encounter Visit Diagnoses Diagnosis B12 deficiency- Primary documented in this encounter Administered Medications Inactive Administered Medications - up to 3 most recent administrations Medication Order MAR Action Action Date Dose Rate Site cyanocobalamin (VITAMIN B-12) 1,000 mcg/mL injection 1,000 mcg 1,000 mcg, Intramuscular, Every 30 days, First dose on Thu11/09/24 at 1145Indications:B12 deficiency Given 11/09/2024 11:08 AM EDT 1,000 mcg Left Deltoid documented in this encounter Care Teams Graphite Pan Drier Tender Relationship Specialty Start Date End Date Theresa Dhillon MD [address] [place] [phone] PCP - General Unknown Provider Specialty 09/13/21 documented as of this encounter Additional Source Comments The information contained in this document represents components of the legal health record. It is not the complete legal health record.[facility]
--- OUTSIDE RECORDS SUMMARY | 2024-11-09 13:00 | XMS_ITS | Encounter Summary ---
Author Organization [facility] Address [address] [place] [address] Phone Care Team Providers Care Experimental Machining Lab Manager Name Role Phone Theresa Dhillon MD Primary Care Prov ider Encounter Details Date Type Department Care Team (Late st Contact Info) Description 11/09/2024 1:00 PM EDT Nutrition [facility] General Surgical Care [address] [place] [address] Isadora Valdivia LDN [address] [place] [address] Morbid obesity with BMI of 40.0-44.9, adult (Primary Dx) Social History Tobacco Use Types Packs/Day Years Used Date Smoking Tobacco: Former Cigarettes 1991 Smokeless Tobacco: Never Tobacco Cessation:Counseling Given: [...] Sign Reading Time Taken Comments Blood Pressure 114/70 11/09/2024 12:00 PM EDT Pulse 90 11/09/2024 12:00 PM EDT Temperature 36.3 C (97.3 F) 11/09/2024 12:00 PM EDT Respiratory Rate - - Oxygen Saturation 98% 11/09/2024 12:00 PM EDT Inhaled Oxygen Concentration - - Weight 102.5 kg (226 lb) 11/09/2024 12:00 PM EDT Height 157.5 cm (5' 2.01 ) 11/09/2024 12:00 PM E DT Body Mass Index 41.33 11/09/2024 12:00 PM EDT documented in this encounter Progress Notes * Isadora Valdivia LDN - 11/09/2024 1:00 PM EDT Initial Bariatric Nutrition Consultation Leslie Velez is a 54 y.o. patient who presents for initial nutrition consult. Patient is working with Divya Pan NP on weight management Patient's insurance has not approved Zepbound yet Reports reasons for wanting to lose weight: back pain, SOB, hip pain, patient is uncomfortable in her body Wt Readings from Last 2 Encounters: 11/09/24 102.5 kg (226 lb) 10/14/24 103.7 kg (228 lb 9.6 oz) Body mass index is 41.33 kg/m??. Weight at initial: 228 lbs Weight change from initial: -2 lbs Previous Weight Loss Methods: supplements, exercise, keto diet, high protein/low carb diet Goal wt: patient does not have one Highest/lowest wt: 278 lbs/140 lbs Onset of obesity: age 19 when patient moved out of her parents' house Family history of obesity: yes - mom's side Possible triggers to weight gain: undesirable food choices, large portions and inadequate physical activity Factors making weight loss difficult: unsustainable changes Weight change in the past year: fluctuating by ~25 lbs EATING HABITS/DIET RECALL: Breakfast: skips or may have 1/2 bagel with cream cheese Lunch: skips or may have leftovers or cheeseburger or soup or quesadillas Dinner 8:30-9:00: large portion of baked ziti or meatloaf and green beans or salad with chicken/shrimp Snack: chips, cookies, cereal, strawberries Beverages: 3 regular Gatorades per week, 3-28 oz bottles of water daily, soda twice per week, very little coffee (a lot of creamer) Dines out: 3-4 times per week Skips meals: yes - sometimes breakfast and sometimes lunch Pace of eating: fast GI issues: constipation - patient does not take anything, reflux - patient takes Protonix and Famotidine Food allergies / intolerances: none Exercise: none Reasons patient cannot / should not exercise: patient may need back surgery SOCIAL HISTORY: Occupation: none Work schedule: N/A Lives with: Support system: Who cooks at home/shopping: patient does both Alcohol: 7 drinks per week Smoking: no Patient-created Goals: Try to have zero calorie beverages Have breakfast every morning - make sure it has protein Try to have healthier evening snacks (veggies with hummus, a low fat cheese stick, turkey pepperoni) Literature Provided: Sent goals via patient portal Interventions: Discussed decreasing sugar/calories from beverages and trading for sugar free/zero versions. Discussed trying to have breakfast consistently and making sure it has protein. Discussed that patient does not feel it is reasonable for her to not have multiple snacks in the evening but that she will try to make healthier choices Stage of change: Patient seems open to working on these goals Plan: Patient will see this RD in three weeks RD spent 45 minutes face to face with patient documented in this encounter Plan of Treatment Upcoming Encounters Date Type Department Care Team (Late st Contact Info) Description 11/30/2024 11:30 AM EDT Nutrition [facility] General Surgical Care [address] [place] [address] Isadora Valdivia LDN [address] August[address] [place] [address] 12/07/2024 11:00 AM EDT Infusion [facility] Medical Infusion Center [address] [place] [address] Lenny Kirby MD [address] [place] [address] 12/14/2024 1:30 PM EST Office Visit [facility] General Surgical Care [address] [place] [address] [place] [address] Divya Pan, PROVIDER ENROLLMENT SPECIALIST [address] [address] 01/04/2025 11:00 AM EST Infusion [facility] Medical Infusion Center [address] [place] [address] Lenny Kirby MD [address] [place] [address] 02/03/2025 11:00 AM EST Infusion [facility] Medical Infusion Center [address] [place] [address] Lenny Kirby MD [address] [place] [address] [phone] documented as of this encounter Visit Diagnoses Diagnosis Morbid obesity with BMI of 40.0-44.9, adult- Primary documented in this encounter Care Teams Experimental Machining Lab Manager Relationship Specialty Start Date End Date Theresa Dhillon MD [address] [place] [address] PCP - General Unknown Provider Specialty 09/13/21 documented as of this encounter Additional Source Comments The information contained in this document represents components of the legal health record. It is not the complete legal health record.[facility]
--- NOTE | 2024-11-11 08:54 | A.SPINEOV_ITS ---
Intake Visit Reasons: discuss sx Intake Note: Ms. Velez is here today to Discuss Surgery. Architectural Model Maker Required: No Allergies dupilumab (From Dupixent Pen) Allergy (Intermediate, Verified 11/11/24 08:54) Rash NSAIDS (Non-Steroidal Anti-Inflamma Allergy (Intermediate, Verified 11/11/24 08:54) Rash Opioids - Morphine Analogues Allergy (Intermediate, Verified 11/11/24 08:54) Rash Sulfa (Sulfonamide Antibiotics) Allergy (Intermediate, Verified 11/11/24 08:54) Rash Assessment & Plan Assessment & Plan (1) Chronic SI joint pain: Code(s): M53.3 - Sacrococcygeal disorders, not elsewhere classified; G89.29 - Other chronic pain Category: Medical Plan Mrs Velez is here in follow up to discuss her SI joint fusion. Please see my last note for the specifics of her problem. She has had left SI joint pain that has responded to injections very nicely. Positive finger Liset test, positive Gaenslen, positive CHINMAY reproducible pain over that area to palpation. She has tried conservative treatment as outlined in my last note. We are going to book her for a left SI joint fusion on February 16. I did ask her to get a clearance note from her customer manager just for the purposes of clarification with anesthesia, as this will be general anesthesia. All pertinent risks and benefits of surgery were discussed. The patient met with Dr. Ramey as well today. Total amount of time spent in this visit was 20 minutes in discussion of symptoms, injection and imaging results and subsequent plan of care Jose G Ramey MD,PhD [facility] Coding Level of Care Code Est Pt Level 3 (53699) Diagnoses Chronic SI joint pain M53.3; G89.29
--- OUTSIDE RECORDS SUMMARY | 2024-11-11 09:20 | XMS_ITS | Encounter Summary ---
Author Organization [facility] Address [address] [place] [address] Phone Care Team Providers Care Business Process Expert Name Role Phone Geovanny Ng MD Primary Care Provider [phone] System, Provider Not In PhD Primary Care Provide Theresa Hernandez MD Primary Care Prov ider Encounter Details Date Type Department Care Team (Late st Contact Info) Description 06/10/2021 Procedure Pass [facility] Endoscopy Admitting Dept Virtual Department [address] [place], [place] [id number] Social History Tobacco Use Types Packs/Day Years Used Date Smoking Tobacco: Former Cigarettes 1991 Smokeless Tobacco: Never Comments:Cigar once a while Alcohol Use Standard Drinks/Week Comments Yes 0 (1 standard drink = 0.6 oz pur e alcohol) 8 per week Comments No Sex and Gender Information Value Date Recorded Sex Assigned at Female 11/13/2020 11:10 AM EDT Legal Sex Female 7:46 PM EST Gender Identity Female 11/13/2020 11:10 AM EDT Sexual Orientation Straight 11/13/2020 11 :10 AM EDT documented as of this encounter Plan of Treatment Upcoming Encounters Date Type Department Care Team (Late Contact Info) Description 11/30/2024 11:30 AM EDT Nutrition [facility] General Surgical Care [address] [place] [address] Isadora Valdivia LDN [address] [place], [place] [phone] 12/07/2024 11:00 AM EDT Infusion [facility] Medical Infusion Center [address] [place] [address] Lenny Kirby MD [address] [place] [address] 12/14/2024 1:30 PM EST Office Visit [facility] General Surgical Care 15 [place] [address] Divya Pan, CODING SUPPORT SPECIALIST [address] [address] 01/04/2025 11:00 AM EST Infusion [facility] Infusion [address] [address] Lenny Kirby MD [address] [place] [address] 02/03/2025 11:00 AM EST Infusion [facility] Infusion Center [address] [place] [address] Lenny Kirby MD [address] [place] [address] documented as of this encounter Visit Diagnoses Not on filedocumented in this encounter Additional Health Concerns Infection Onset Date Last Indicated Resolved Time COVID-19 01/14/2023 01/14/2023 02/04/2023 1:21 AM EST documented as of this encounter Care Teams Business Process Expert Relationship Specialty Start Date End Date Geovanny Ng MD [address] [place] [address] PCP - General Internal Medicine 02/27/21 09/11/21 System, Provider [place] In, [place] [address] PCP - General 09/12/21 09/12/21 Threesa Dhillon MD [address] [place] [address] PCP - General Unknown Provider Specialty 09/13/21 documented as of this encounter Additional Source Comments The information contained in this document represents components of the legal health record. It is not the complete legal health record.[facility]
--- OUTSIDE RECORDS SUMMARY | 2024-11-11 09:20 | XMS_ITS | Encounter Summary ---
Author Organization [facility] Address [address] [place] [address] Phone Care Team Providers Care Tentmaker Name Role Phone Theresa Dhillon MD Primary Care Prov ider Encounter Details Date Type Department Care Team (Late Contact Info) Description 11/14/2021 Transcribe Orders [facility] PFT Lab [address] [place], [place] [phone] Lenny Kirby MD [address] [place] [address] [email or web address] Social History Tobacco Use Types Packs/Day Years [...] Upcoming Encounters Date Type Department Care Team ([facility] Contact Info) Description 11/30/2024 11:30 AM EDT Nutrition [facility] General Surgical Care [address] [place] [address] Isadora Valdivia LDN [address] [place] [address] 12/07/2024 11:00 AM EDT Infusion [facility] Infusion [address] [address] Lenny Kirby MD [address] [place] [address] 12/14/2024 1:30 PM EST Office Visit [facility] General Surgical Care 15 [place] [address] Divya Pan, LIME MIXER TENDER [address] [address] 01/04/2025 11:00 AM EST Infusion [facility] Infusion [address] [address] Lenny Kirby MD [address] [place] [address] 02/03/2025 11:00 AM EST Infusion [facility] Infusion [address] [address] Lenny Kirby MD [address] [place] [address] [email or web address] documented as of this encounter Visit Diagnoses Not on filedocumented in this encounter Additional Health Concerns Infection Onset Date Last Indicated Resolved Time COVID-19 01/14/2023 01/14/2023 02/04/2023 1:21 AM EST documented as of this encounter Care Teams Tentmaker Relationship Specialty Start Date End Date Theresa Dhillon MD [address] [place] [address] PCP - General Unknown Provider Specialty 09/13/21 documented as of this encounter Additional Source Comments The information contained in this document represents components of the legal health record. It is not the complete legal health record.[facility]
--- OUTSIDE RECORDS SUMMARY | 2024-11-11 09:20 | XMS_ITS | Encounter Summary ---
Author Organization [facility] Address [address] [place] [address] Phone Care Team Providers Care Nitroglycerin Nitrator Operator Batch Name Role Phone Theresa Dhillon MD Primary Care Prov ider Encounter Details Date Type Department Care Team (Late st Contact Info) Description 01/29/2023 Transcribe Orders [facility] PFT Lab [address] [place] [address] Lenny Kirby MD [address] [place] [address] [email or web address] Social History Tobacco Use Types Packs/Day Years [...] with a working camera? Not on file Comments No Sex and Gender Information Value Date Recorded Sex Assigned at Female 11/13/2020 11:10 AM EDT Legal Sex Female 7:46 PM EST Gender Identity Female 11/13/2020 11:10 AM EDT Sexual Orientation Straight 11/13/2020 11 :10 AM EDT documented as of this encounter Plan of Treatment Upcoming Encounters Date Type Department Care Team (Late st Contact Info) Description 11/30/2024 11:30 AM EDT Nutrition [facility] General Surgical Care [address] [place] [address] Isadora Valdivia LDN [address] [place] [address] 12/07/2024 11:00 AM EDT Infusion [facility] Medical Infusion Center [address] [place] [address] Lenny Kirby MD [address] [place] [address] 12/14/2024 1:30 PM EST Office Visit [facility] General Surgical Care [address] [place] [address] Divya Pan, WIRE DRAWING DIE MAKER [address] [address] 01/04/2025 11:00 AM EST Infusion [facility] Infusion Center [address] [place] [address] Lenny Kirby MD [address] [place] [address] [phone] 02/03/2025 11:00 AM EST Infusion [facility] Medical Infusion Center [address] [place] [address] Lenny Kirby MD [address] [place] [address] [phone] documented as of this encounter Visit Diagnoses Not on filedocumented in this encounter Additional Health Concerns Infection Onset Date Last Indicated Resolved Time COVID-19 01/14/2023 01/14/2023 02/04/2023 1:21 AM EST documented as of this encounter Care Teams Nitroglycerin Nitrator Operator Batch Relationship Specialty Start Date End Date Theresa Dhillon MD [address] [place] [address] PCP - General Unknown Provider Specialty 09/13/21 documented as of this encounter Additional Source Comments The information contained in this document represents components of the legal health record. It is not the complete legal health record.[facility]
--- OUTSIDE RECORDS SUMMARY | 2024-11-11 09:20 | XMS_ITS | Encounter Summary ---
Author Organization [facility] Address [address] [place] [address] [place] [address] Phone Care Team Providers Care Florist Designer Name Role Phone Mary Redd MD Primary Care Provide r Kiran Kinney MD Unavailable [phone] Lenny Kirby MD Unavailable [phone] Mary Redd MD Unavailable [phone] Jose Novoa MD Primary Care Provider Geovanny Ng MD Primary Care Provider System, Provider Not In PhD Primary Care Provide r Unavailable Theresa Dhillon MD Primary Care Prov ider Encounter Details Date Type Department Care Team (Late st Contact Info) Description 10/18/2018 Procedure Pass [facility] Endoscopy Admitting Dept Virtual Department 30 [place] [address] Social History Tobacco Use Types Packs/Day Years Used Date Smoking Tobacco: Former Smokeless Tobacco: Never Comments:Cigar once a while [...] Info) Description 11/30/2024 11:30 AM EDT Nutrition [facility] General Surgical Care 15 [place] [address] Isadora Valdivia LDN [address] [place] [address] 12/07/2024 11:00 AM EDT Infusion [facility] Medical Infusion Center [address] [place] [address] Lenny Kirby MD [address] [place] [address] [phone] 12/14/2024 1:30 PM EST Office Visit [facility] General Surgical Care [address] [place] [address] [place] [address] Divya Pan, VIDEO GAME DESIGNER [address] [address] 01/04/2025 11:00 AM EST Infusion [facility] Infusion Center [address] [place] [address] Lenny Kirby MD [address] [place] [address] [phone] 02/03/2025 11:00 AM EST Infusion [facility] Medical Infusion Center [address] [place] [address] Lenny Kirby MD [address] [place] [address] [phone] [email or web address] documented as of this encounter Visit Diagnoses Not on filedocumented in this encounter Additional Health Concerns Infection Onset Date Last Indicated Resolved Time CoV-Risk 03/20/2020 03/21/2020 03/30/2020 1:24 AM EST CoV-Risk Comment:Per note documentation 11/13/2020 11/15/2020 8:30 AM EDT CoV-Exposed Comment:Recent close contact documented in the COVID-19 PCR/PRO order 12/16/2020 12/21/2020 12/31/2020 1:[address] COVID-19 01/14/2023 01/14/2023 02/04/2023 1:21 AM EST documented as of this encounter Care Teams Florist Designer Relationship Specialty Start Date End Date Mary Redd MD [address] [place] [address] PCP - General 06/15/14 11/12/20 Jose Novoa MD [address] [place] [address] [email or web address] PCP - General Internal Medicine 11/13/20 02/26/21 Geovanny Ng MD [address] [place] [address] PCP - General Internal Medicine 02/27/21 09/11/21 System, Provider Not In, [place] [address] PCP - General 09/12/21 09/12/21 Theresa Dhillon MD [address] [place] [address] PCP - General Unknown Provider Specialty 09/13/21 Kiran Kinney MD [address] [place] [address] [email or web address] [email or web address] 04/19/15 11/12/20 Lenny Kirby MD [address] [place] [address] [email or web address] Historical LMR Provider 11/29/16 11/12/20 Mary Redd MD [address] [place] [address] Historical LMR Provider 11/29/16 11/12/20 documented as of this encounter Additional Source Comments The information contained in this document represents components of the legal health record. It is not the complete legal health record.[facility]
--- OUTSIDE RECORDS SUMMARY | 2024-11-11 09:20 | XMS_ITS | Encounter Summary ---
Author Organization [facility] Address [address] [facility] [address] [place] [address] Phone Care Team Providers Care Teletypist Name Role Phone Jose Novoa MD Primary Care Provider [phone] Geovanny Ng MD Primary Care Provider [phone] System, Provider Not In PhD Primary Care Provide Theresa Hernandez MD Primary Care Prov ider Encounter Details Date Type Department Care Team (Latest Contact Info) Description 02/12/2021 Transcribe Orders Virtual Department 30 [place] [address] Jacinta Kirkland NP [address] [place] [address] Epigastric pain (Primary Dx) Social History Tobacco Use Types [...] Info) Description 11/30/2024 11:30 AM EDT Nutrition [facility] General Surgical Care [address] [place] [address] Isadora Valdivia LDN [address] [place] [address] 12/07/2024 11:00 AM EDT Infusion [facility] Infusion [address] [address] Lenny Kirby MD [address] [place] [address] 12/14/2024 1:30 PM EST Office Visit [facility] General Surgical Care [address] [place] [address] Divya Pan, ROOM SERVICE SERVER [address] [address] 01/04/2025 11:00 AM EST Infusion [facility] Infusion [address] [address] Lenny Kirby MD [address] [place] [address] [phone] [email or web address] 02/03/2025 11:00 AM EST Infusion [facility] Infusion [address] [address] Lenny Kirby MD [address] [place] [address] [phone] documented as of this encounter Results * US ABDOMEN LIMITED RIGHT UPPER QUADRANT (02/22/2021 10:36 AM EST) Anatomical Region Laterality Modality Abdomen Ultrasound 02/22/2021 10:4 2 AM EST Impressions 02/22/2021 10:44 AM EST 1. No evidence of cholelithiasis, cholecystitis or biliary ductal dilatation. 2. 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 Narrative 02/22/2021 10:44 AM EST HISTORY: Epigastric pain. COMPARISON: None. FINDINGS: Right upper quadrant study is performed. Biliary: Gallbladder appears normal. No pericholecystic fluid or sonographic Silva sign. Proximal common duct normal measuring 4 mm in diameter. Liver: The liver is mildly hyperechoic diffusely and somewhat difficult to penetrate with sound. No visible hepatic masses. Normal hepatopedal blood flow in the main portal vein. Pancreas: No abnormalities demonstrated. Right Kidney: No abnormalities on limited imaging of the right kidney. Procedure Note Jimmy Babb MD - 02/22/2021 HISTORY: Epigastric pain. COMPARISON: None. FINDINGS: Right upper quadrant study is performed. Biliary: Gallbladder appears normal. No pericholecystic fluid orsonographic Silva sign. Proximal common duct normal measuring 4 mm indiameter. Liver: The liver is mildly hyperechoic diffusely and somewhat difficult topenetrate with sound. No visible hepatic masses. Normal hepatopedal bloodflow in the main portal vein. Pancreas: No abnormalities demonstrated. Right Kidney: No abnormalities on limited imaging of the right kidney. IMPRESSION: 1. No evidence of cholelithiasis, cholecystitis or biliary ductaldilatation. 2. Findings consistent with hepatocellular disease, likely on the basis offatty infiltration. Jacinta Kirkland PAYROLL ANALYST IMG US ABDOMEN Final Res ult documented in this encounter Visit Diagnoses Diagnosis Epigastric pain- Primary Abdominal pain, epigastric Epigastric pain Abdominal pain, epigastric documented in this encounter Additional Health Concerns Infection Onset Date Last Indicated Resolved Time COVID-19 01/14/2023 01/14/2023 02/04/2023 1:21 AM EST documented as of this encounter Care Teams Teletypist Relationship Specialty Start Date End Date Jose Novoa MD [address] [place] [address] PCP - General Internal Medicine 11/13/2002/09 Geovanny Ng MD [address] [place] [address] PCP - General Internal Medicine 02/27/21 09/11/21 System, Provider Not In, [place] [address] PCP - General 09/12/21 09/12/21 Theresa Dhillon MD [address] [place] [address] PCP - General Unknown Provider Specialty 09/13/21 documented as of this encounter Additional Source Comments The information contained in this document represents components of the legal health record. It is not the complete legal health record.[facility]
--- OUTSIDE RECORDS SUMMARY | 2024-11-11 09:20 | XMS_ITS | Clinical Summary ---
Author Organization [facility] Address [address] [place] [address] Care Team Providers Care Upholsterer Limousine And Hearse Name Role Phone Theresa Hou MD Primary [...] age to complete this topic Care Teams Upholsterer Limousine And Hearse Relationship Specialty Start Date End Date Theresa Hou MD [address] [place] [address] PCP - General Internal Medicine 05/08/22
--- OUTSIDE RECORDS SUMMARY | 2024-11-11 09:20 | XMS_ITS | Clinical Summary ---
Author Organization [facility] Address [address] [employer] [address] [facility] [address] [place] [phone] Phone Care Team Providers Care Chief Mechanical Engineer Name Role Phone Theresa Dhillon MD Primary Care Prov ider Allergies Active Allergy Reactions Criticality Noted Date Comments Dupilumab Fever High 09/06/2019 Possible serum sickness Levofloxacin 10/14/2024 Other Reaction(s): Not available levofloxacin Morphine Rash,Other (See Comments) Low 12/05/2010 Other [...] 1d of hospitalization for it in 2001. Sulfamethoxazole-Trim ethoprim Other (See Comments) 05/20/2011 Bactrim Other Reaction(s): Rash/Dermatitis Bactrim Trimethoprim 2020 Medications pantoprazole (PROTONIX) 40 MG tablet Take 40 mg by mouth 2 (two) times a day. Active nebulizer and compressor DeviIndications:A spirin-sensitive asthma with nasal polyps Requesting Portable Nebulizer plus: 1 filter/month 2 disposable neb kits/month 1 permanent neb kit/6 months Every six hours PRN for wheezing/shortnes s of breath 1 each 01/14/2 019 Active famotidine (PEPCID) 20 MG tablet [...] by mouth. Active aspirin 325 MG EC tabletIndications :Sampters [place] (AERD) ASA desensitization test 02/2021 Take [...] PATCH TOPICALLY TO SKIN ONCE A WEEK Active cyanocobalamin, vitamin B-12, (VITAMIN B-12 INJ) Inject 1,000 mcg as directed every 28 days. Active lisdexamfetamine (VYVANSE) 50 MG capsule Take 1 capsule by mouth every morning. Active hydrOXYzine (ATARAX) 50 MG tablet Take 50 mg by mouth 3 (three) times a day as needed. Active clobetasol (TEMOVATE) 0.05 % ointment Apply 1 Application topically 2 (two) times a day. Active brimonidine (ALPHAGAN) 0.2 % ophthalmic solution Place 1 drop into each eye 2 (two) times a day. Active albuterol 2.5 mg /3 mL (0.083 %) nebulizer solutionIndicatio ns:Severe persistent asthma without complication USE 1 VIAL IN NEBULIZER EVERY 6 HOURS NEEDED 300 mL 11 Active albuterol 90 mcg/actuation inhalerIndication s:Severe persistent asthma without complication Inhale 2 puffs [...] 210 mg/1.91 mL (110 mg/mL) subcutaneous pen injectorIndicatio ns:Severe persistent asthma without complication,Nasa l polyp, benign,Chronic pansinusitis Inject 1.9 mL (210 mg total) under the skin every 28 days. 1.9 mL 12 Active fluticasone-umecl idin-vilanter (TRELEGY ELLIPTA) 200-62.5-25 mcg inhalerIndication s:Severe persistent asthma with acute exacerbation Inhale 1 puff into the lungs daily. 180 each Active fluticasone furoate (ARNUITY ELLIPTA) 200 mcg/actuation DsDv Inhale 1 puff into the lungs daily. 90 each 025 Active cloNIDine HCL (CATAPRES) 0.3 MG tablet [...] of going to bed. 30 tablet 2 025 Active albuterol-budeson alex (AIRSUPRA) 90-80 mcg/actuation inhaler Inhale 2 puffs into the lungs every 4 (four) hours as needed for shortness of breath/dyspnea. 10.7 g 5 025 Active gabapentin (NEURONTIN) 400 MG capsule Take 400 mg by mouth 4 (four) times a day. Active prazosin (MINIPRESS) 2 MG capsule Take 2 mg by mouth nightly at bedtime. 025 Active tirzepatide, weight loss, (ZEPBOUND) 2.5 mg/0.5 mL subcutaneous penIndications:Cl ass 3 severe obesity with serious comorbidity and body mass index (BMI) of 40.0 to 44.9 in adult Inject 0.5 mL (2.5 mg total) under the skin once a week. 2 mL Active Additional Information Patient not taking.Reported on 11/09/2024 tirzepatide, weight loss, (ZEPBOUND) 2.5 mg/0.5 mL subcutaneous penIndications:Cl ass 3 severe obesity with serious comorbidity and body mass index (BMI) of 40.0 to 44.9 in adult Inject 0.5 mL (2.5 mg total) under the skin once a week. 2 mL 025 10/18 Discontinued tirzepatide, weight loss, (ZEPBOUND) 2.5 mg/0.5 mL subcutaneous penIndications:Cl ass 3 severe obesity with serious comorbidity and body mass index (BMI) of 40.0 to 44.9 in adult Inject 2.5 mg subcutaneously once a week 2 mL 025 10/18 Discontinued( Reorder) Active Problems Problem Noted Date Diagnosed Date Severe binge-eating disorder 10/14/2024 Overview (10/14/2024): Onset age 17 Nightly binge behavior Works w therapist & psychiatrist. On Vyvanse & wellbutrin Prediabetes 10/14/2024 Overview (10/14/2024): Recent A1c 6.2 Need for RSV vaccination 08/30/2024 Assessment & [...] mg subcu every 4 weeks. Sent to [facility] specialty pharmacy. Assessment & Plan (06/17/2023 11:40 [...] refer to asthma specialty center, such as [facility] severe asthma clinic, for second opinion [...] patient requests change receiving medication here at [facility]. Goal will be begin for September [...] aspirin for this-held as per recommendation of rib bender. Assessment & Plan (11/18/2020 1:34 PM EDT): [...] Budesonide can be mixed with twice daily [place] pot which is she is using, can [...] 40.0 to 44.9 in adult 03/17/2012 Overview (10/14/2024): WHO class 3, AACE stage 1 Comorbid BED AOMs tried: Vyvanse (BED), Wellbutrin Assessment & Plan (10/14/2024 2:05 PM EDT): Pt was educated on the pathophysiology of obesity, which is a chronic, relapsing, often progressive neuroendocrine disease with behavioral components. We discussed treatment approaches including lifestyle changes, pharmacotherapy & bariatric surgery. We discussed their personal treatment goals. We discussed targeting a weight loss goal of 5-10% over the next 6 months as this modest amount of weight loss has been shown to decrease blood pressure, insulin resistance, sleep apnea, liver inflammation, arthritic pain and improve dyslipidemia. Patient was given the initial meal plan and exercise recommendations. I recommend patient work with our dietitian, Kylah Valdivia RD and have asked them to schedule an appt. I have recommended the following Anti-Obesity Medication: Tirzepatide They will start at 2.5 mg q week x 4 wk, then if tolerated we can titrate every 4 weeks The patient has completed > 6 months of efforts focused on dietary and lifestyle changes and has been unsuccessful in reaching their weight loss goals. I have explained that this medication decreases appetite & food cravings and increases feeling of fullness. I have reviewed the following possible side effects: Nausea, vomiting, constipation, gastroparesis, SBO, pancreatitis, gallstones, suicidal thoughts, diabetic retinopathy, optic neuropathy, low blood sugar and in rat studies an increased risk of medullary thyroid cancer and MEN2. This medication is not recommended in patients with a personal or family history of medullary thyroid cancer or multiple endocrine neoplasia 2A or 2B. We also discussed health insurance inflicted barriers to obtaining GLP1RA and possible need for prior authorization & appeal If insurance denies Zepbound and she is ultimately diagnosed w moderate to severe sleep apnea PA should be resubmitted. She has contraindications to phentermine & topiramate. Assessment & Plan (08/30/2024 12:52 PM EDT): Awaiting upcoming consultation with weight management program at [facility]. Currently no data to show reduction in [...] and ongoing prednisone use, will refer to [facility] weight management program for further evaluation. Kidney stones Resolved Problems Problem Noted Date Diagnosed Date [...] Encounters Date Type Department Care Team Description 11/09/2024 1:00 PM EDT Nutrition [facility] General Surgical Care [address] [place] [address] Isadora Valdivia LDN Morbid obesity with BMI of 40.0-44.9, adult (Primary Dx) 11/09/2024 11:00 AM EDT Infusion [facility] [address] [place] [address] Irasema Kirby MD B12 deficiency (Primary Dx) 10/31/2024 Telephone [facility] [address] [place] [address] Divya Pan CNP Medication Prior Authorization (Zepbound 2.5 MG) 10/19/2024 Refill [facility] [address] [place] [address] Divya Pan, ARIN Med Change Request 10/18/2024 Refill [facility] [address] [place] [address] Divya Pan, ARIN Med Change Request 10/14/2024 1:00 PM EDT Office Visit [facility] [address] [place] [address] Divya Pan CNP Class 3 severe obesity with serious comorbidity and body mass index (BMI) of 40.0 to 44.9 in adult (Primary Dx); Severe binge-eating disorder; Prediabetes 10/12/2024 11:00 AM EDT Infusion [facility] Infusion [address] [address] Irasema Kirby MD B12 deficiency (Primary Dx) 09/23/2024 Telephone [facility] [address] [place] [address] Divya Pan, ARIN Patient Returned Call 09/19/2024 1:30 PM EDT Office Visit [facility] [address] [place] [address] Jose G Manzo MD Daytime sleepiness; Snoring; Other insomnia; Delayed sleep phase syndrome 09/19/2024 Telephone [facility] [address] [place] [address] Jose G Manzo MD Sleep Study (In lab with SMS) 09/14/2024 11:00 AM EDT Infusion [facility] Infusion [address] [address] Irasema Kirby MD B12 deficiency (Primary Dx) 08/30/2024 10:30 AM EDT Office Visit [facility] [address] [place] [address] Irasema Kirby MD Aspirin-sensitive asthma with nasal polyps (Primary Dx); Gastroesophageal reflux disease with esophagitis without hemorrhage; Class 3 severe obesity with serious comorbidity and body mass index (BMI) of 40.0 to 44.9 in adult; Severe persistent asthma without complication; Need for RSV vaccination 08/30/2024 Transcribe Orders [facility] PFT Lab [address] [place] [address] Irasema Kirby MD 08/17/2024 11:30 AM EDT Infusion [facility] Infusion Center [address] [place] [address] Irasema Kirby MD B12 deficiency (Primary Dx) 08/16/2024 2:00 PM EDT Office Visit [facility] [address] [place] [address] Jose G Manzo MD Other insomnia; Snoring; Daytime sleepiness; Delayed sleep phase syndrome from Last 3 Months Immunizations Immunization Administration Dates Next Due Influenza Quadrivalent Prese rvative Free IM 11/20/2020(Deferred: Patient Refused) Influenza, Unspecified Formulation 03/17/2012 Family History Medical History Relation Comments Asthma Mother Relation Status Comments Mother Social History Tobacco Use Types Packs/Day Years Used Date Smoking Tobacco: Former Cigarettes 1 1991 Smokeless Tobacco: Never Tobacco Cessation:Counseling Given: [...] F) 11/09/2024 12:00 PM EDT Respiratory Rate 20 11/09/2024 11:00 AM EDT Oxygen Saturation 98% 11/09/2024 12:00 PM EDT Inhaled Oxygen Concentration - - Weight 102.5 kg (226 lb) 11/09/2024 12:00 PM EDT Height 157.5 cm (5' 2.01 ) 11/09/2024 12:00 PM E DT Body Mass Index 41.33 11/09/2024 12:00 PM EDT Plan of Treatment Upcoming Encounters Date Type Department Care Team (Late st Contact Info) Description 11/30/2024 11:30 AM EDT Nutrition [facility] General Surgical Care [address] [place] [address] Isadora Valdivia LDN [address] [place] [address] 12/07/2024 11:00 AM EDT Infusion [facility] [address] [place] [address] Irasema Kirby MD [address] [address] 12/14/2024 1:30 PM EST Office Visit [facility] General Surgical Care [address] [place] [address] Divya Pan, MAINTENANCE SUPERVISOR ELECTRICAL 15 [facility], [address] [place] [id number] 01/04/2025 11:00 AM EST Infusion [facility] Infusion [address] [address] Irasema Kirby MD [address] [place] [address] 02/03/2025 11:00 AM EST Infusion [facility] Infusion [address] [address] Irasema Kirby MD [address] [place] [address] [id number] Health Maintenance Due Date Last Done Comments DEPRESSION SCREENING 1983 HEPATITIS C SCREENING 09/09/1989 HIV ONE-TIME SCREENING (18-65 YEARS) 09/09/1989 COLOGUARD 09/09/2016 FIT TEST 09/09/2016 FOBT 09/09/2016 SIGMOIDOSCOPY 09/09/2016 VIRTUAL COLONOSCOPY 09/09/2016 PAP SMEAR 08/05/2020 08/05/2017 SCREENING FOR DIABETES 11/16/2023 11/15/2020 INFLUENZA VACCINE (#1) 2024 03/17/2012, 2011 BLOOD PRESSURE 05/10/2025 11/09/2024 SMOKING Hx and SMOKELESS TOBACCO SCREENING 11/09/2025 11/09/2024 MAMMOGRAM 10/28/2026 10/28/2024, 10/10, 09/28/2020 LIPID PANEL 04/24/2027 04/23/2022, 08/10, 09/05/2020 COLONOSCOPY 06/11/2031 06/10/2021 COLORECTAL CANCER SCREENING 06/11/2031 Adult Td,Tdap Booster 04/16/2032 04/16/2022, 012 ZOSTER VACCINES Completed 07/29/2022, 05/27/2022 PNEUMOCOCCAL VACCINES (50+ years) Completed 05/04/2024 COVID-19 VACCINE Completed 11/01/2024, , 12/30/2020, Additional history exists HEPATITIS A VACCINES Aged Out No long [...] this topic Medical Devices Implanted Type Area Lotus Notes Administrator Device Identifier Shelf Expiration Date Model / [...] 06/10/2021 11:13 AM EDT Patient Name: Leslie eVlez Attending MD:: IRASEMA RODRIGUEZ MD Procedure Date: 06/10/2021 11:13 AM Date of : 1970 Age: 50 Admit Type: Outpatient Gender: Female Room: [facility] Referring MD: Geovanny Ng MD Exam Type: [...] monitored continuously. The Olympus adult variable colonoscope [id number] #[id number] was introduced through the anus and [...] 11:13 AM Procedure Code(s): --- Professional --- 23759, Colonoscopy, flexible; with biopsy, single or multiple --- Technical --- 87870, Colonoscopy, flexible; with biopsy, single or multiple [...] or abscess without bleeding CPT copyright 2020 [employer]. All rights reserved. The codes documented in this report are preliminary and upon shell worker reviewmay be revised to meet current compliance requirements. Procedure Date: 06/10/2021 11:13:[address] [place] [id number] Geovanny Ng MD GI PROCEDURE ORDERABLES Final Result from Last 3 Months or Most Recently Relevant to Health Maintenance Insurance MEDICARE PART A & B [facility] MEDICARE PART A & B MEDICARE PART A & B [facility] MEDICARE PART A & B Member Subscriber Plan / Payer (Ef fective 1995-) Name:Leslie Velez L Member ID:[id number] Relation to Subscriber:Self Name:Leslie Velez L Subscriber ID:[id number] Payer ID:[id number] Group ID:Not on file Type:Medicare Address: [employer] [address] [address] A & B HEALTH MEDICARE PART A & B [facility] MEDICARE PART A & B [place] MED[place]ARE PART A & B HEALTH MEDICARE PART A & B [facility] Advance Directives For more information, please contact: [phone] (9AM - 5PM [facility]ety/[facility], Thursday-Thursday) * Full Code (Latest Code Status on File) Date Activated Date Inactivated Comments 11/15/2020 4:53 PM Question Answer Comments Code Status Confirmed With: Patient Care Teams Chief Mechanical Engineer Relationship Specialty Start Date End Date Theresa Dhillon MD [address] [place] [id number] PCP - General Unknown Provider Specialty 09/13/21 Additional Source Comments The information contained in this document represents components of the legal health record. It is not the complete legal health record.[facility]
--- OUTSIDE RECORDS SUMMARY | 2024-11-11 09:20 | XMS_ITS | Clinical Summary ---
Author Organization [facility] [address] [place] [address] [place] [address] Phone Care Team Providers Care Corporate Controller Name Role Phone Theresa Dhillon MD Primary [...] is covered by insurance. 07/11/19 23 Active famotidine (PEPCID) 20 mg tablet Take [...] 1 Capsule by mouth at bedtime. Active fluticasone-umec lidinium-vilante rol (Trelegy Ellipta) 200-62.5-25 mcg inhaler Inhale 1 [...] Active flunisolide (NASALIDE) 25 mcg (0.025 %) spray,non-aeroso l 2 spray 08/23/19 17 Active fluticasone furoate (ARNUITY ELLIPTA) 200 mcg/actuation blister with device inhaler Inhale 1 puff by mouth 1 (one) time each day. 01/26/20 21 Active fluticasone furoate-vilanter oL (BREO ELLIPTA) 200-25 mcg/dose inhaler Inhale by [...] TO 300 MG DAILY 12/28/19 24 Active estradioL-levono rgestreL (Climara Pro) 0.045-0.015 mg/[address] 1 patch on the skin 1 (one) time per week. 12 each 1 11/03/19 25 026 Active estradioL-levono rgestreL (Climara Pro) 0.045-0.015 mg/[address] 1 Patch onto the skin once a week. 09/17/19 24 025 Discontin ued(Reord er) Active Problems Problem Noted Date Diagnosed Date Prediabetes 09/15/2024 Vitamin B12 deficiency 09/13/2024 Sacroiliitis, not elsewhere classified ([facility] V24) 08/31/2024 Assessment & Plan [...] her a referral to Dr. Ramey in [place] who does. She was appreciative. Nephrolithiasis 12/01/2023 Overview (12/01/2023): lithotripsy Morbid obesity with BMI of 4 0.0-44.9, adult ([facility] V24, [facility] V28) 12/01/2023 Aspirin-sensitive asthma with [...] & Plan: Post-menopausal hormone therapy counselling: Delfin Borges was counseled at length on the [...] ClimaraPro provided. Hypothyroidism 04/23/2022 Congestive heart failure ([facility] V24, CMS/[facility] V 28) 2020 Overview (12/01/2023): Congestive heart failure Carpal tunnel syndrome on both sides 07/20/2020 Esophageal spasm 10/05/2018 Overview (12/01/2023): Response to sublingual nitroglycerin Last Assessment & Plan: No recent flares. Continue as needed sublingual nitroglycerin. 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 Pradhan ([facility]). Noted since 2011. Last note in 2014 - no change in exophytic mass, likely a hemorrhagic cyst; no further imaging needed. Noted on [facility] noncontrast CT 12/07/2018: 2.9 x 4.7 [...] Encounters Date Type Department Care Team Description 10/28/2024 1:59 PM EDT - 10/28/2024 11:59 PM EDT Hospital Encounter Radiology Department [address] [phone] Encounter for screening mammogram for breast cancer Discharge Disposition: Home or Self Care 10/25/2024 1:30 PM EDT Procedure visit General Surgery [address] [place] [phone] Sidney Nguyễn MD Dysplastic nevus (Primary Dx); Nevus 09/20/[address] [place] [phone] Knawal Stephens MA 09/13/2024 12:30 PM EDT Office Visit Adult Medicine [address] [phone] Amanda Willard PA Fatigue, unspecified type (Primary Dx); Chronic daily headache; Vitamin D deficiency; Vitamin B12 deficiency; History of anemia; Morbid obesity with BMI of 40.0-44.9, adult (CMS/HCC V24, [facility] V28) 09/12/2024 Telephone Adult Medicine [address] [phone] Marlena Charles RN 08/31/2024 1:30 PM EDT Consult [address] [place] [phone] Karl Warren PA Sacrococcygeal disorders, not elsewhere classified; Sacroiliitis, not elsewhere classified ([facility] V24) from Last 3 Months Immunizations Immunization Administration Dates Next Due HepB-CpG (Heplisav-B) 19yo [...] Date Site/Laterality Comments ENDOMETRIAL ABLATION 2005 PROCEDURE: AR ENDOMETRIAL ABLTJ THERMAL W/O HYSTEROSCOPIC GUID SINUS SURGERY PROCEDURE: AR UNLISTED PROCEDURE ACCESSORY SINUSES; COMMENT: Polyp recurrence TUBAL LIGATION PROCEDURE: HISTORICAL TUBAL LIGATION OTHER SURGICAL HISTORY PROCEDURE: HISTORICAL MELANOMA MOLE REMOVAL 03/2014 PROCEDURE: HISTORICAL MOLE (REMOVAL OF)/ UPPER RIGHT BICEP/MELANOMA MYOMECTOMY 2014 Left PROCEDURE: AR LAPS MYOMECTOMY EXC 1-4 MYOMAS 250 GM/<; COMMENT: left broad ligament myoma (presented as pelvic mass) HYSTEROSCOPY 11/07/2014 PROCEDURE: AR HYSTEROSCOPY BX ENDOMETRIUM&/POLYPC W/WO D&C; COMMENT: removal of endometrial polyp ESOPHAGOGASTRODUODENOSCOPY 07/22/2016 PROCEDURE: AR ESOPHAGOGASTRODUODENOSCOPY TRANSORAL DIAGNOSTIC; COMMENT: Dr. Toro at [facility] -mild esophagitis, mild duodenitis, H. pylori negative LITHOTRIPSY PROCEDURE: HISTORICAL LITHOTRIPSY OTHER SURGICAL HISTORY Left PROCEDURE: AR REPAIR PRIMARY OPEN/PRQ RUPTURED ACHILLES TENDON; COMMENT: Associated with Quinolones ESOPHAGOGASTRODUODENOSCOPY 10/18/2018 PROCEDURE: AR ESOPHAGOGASTRODUODENOSCOPY TRANSORAL DIAGNOSTIC; COMMENT: Dr Aponte, [facility] - esophagitis, gastritis, duodenitis CARPAL TUNNEL RELEASE 09/17/2020 Right PROCEDURE: AR NEUROPLASTY &/TRANSPOS MEDIAN NRV CARPAL TUNNE; COMMENT: Right endoscopic CTR with Dr. Sood CARPAL TUNNEL RELEASE 07/23/2020 Left PROCEDURE: AR NEUROPLASTY &/TRANSPOS MEDIAN NRV CARPAL TUNNE; COMMENT: [...] nodes done ... excised while living in [place]) Aspirin-sensitive asthma wit h nasal polyps 03/07/2015 DX:Aspirin-sensitive asthma with nasal polyps Cataract 06/19/2011 DX:Cataract Glaucoma 06/19/2011 DX:Glaucoma Osteopenia DX:Osteopenia Renal mass 12/21/2012 DX:Renal mass; C OMMENT: Being followed by Dr. 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 [facility] Peptic ulcer disease 03/16/2018 DX:Peptic u lcer disease Morbid obesity with BMI of 4 0.0-44.9, adult ([facility]/HCC V24, [facility] V28) 10/04/2019 DX:Morbid obesity wit h BMI of 40.0-44.9, adult ([facility]) Vitamin B deficiency Melanoma ([facility] V24, [facility] V28) BACK LESION Disease of thyroid gland Hypothyroidism Adhd Prediabetes 09/15/2024 Family History Medical History Relation Name Comments Heart attack Father or before 40 y/ o Ovarian cancer Maternal Grandmother Uterine cancer Maternal Grandmother Glauc she, Cataract Asthma Mother Polypharmacy- c ause of Breast cancer Mother's side m. aunt aunt, miguel al Colon cancer Neg Hx Relation Name Status Comments Father Alive Maternal Grandmother Mother Mother's side m. aunt Social History Tobacco Use Types Packs/Day Years Used Date Smoking Tobacco: Former Cigarettes Q uit: 12/05/1992 Smokeless Tobacco: Never Tobacco Cessation:Counseling Given: Not Answered Alcohol Use Standard Drinks/Week Comments Yes 0 [...] care for your loved ones. For example, childcare worker or elderly care for an older adult? [...] Date Recorded What is your living situation? Unrecognized valu e 09/13/2024 Interpersonal Safety Answer Date Record ed Physical Abuse Unrecognized value 05/03/2024 Verbal Abuse Unrecognized value 05/03/2024 Comments No Sex and Gender Information Value Date Recorded Sex Assigned at Female 02/16/2024 3:27 PM EST Legal Sex Female 1:11 PM EST Gender Identity Female 02/16/2024 3:27 PM EST Sexual Orientation Straight 02/16/2024 3: 27 PM EST Obstetrics History Para Term AB IAB SAB Ectopic Multiple Livin g Live Births 2 2 2 2 Date Outcome GA Total Labor Labor/2nd/3rd Weight Sex Type Anes PTL Sugey A1 A5 Name Clin Term Term Last Filed Vital Signs Vital Sign Reading Time Taken Comments Blood Pressure 135/81 10/25/2024 1:24 PM EDT Pulse 120 10/25/2024 1:24 PM EDT Temperature 36.3 C (97.3 F) 10/25/2024 1:24 PM EDT Respiratory Rate 14 09/13/2024 12:26 PM EDT Oxygen Saturation 96% 09/13/2024 12:26 PM EDT Inhaled Oxygen Concentration - - Weight 104 kg (230 lb 3.2 oz) 10/25/2024 1:24 PM EDT Height 160 cm (5' 3 ) 10/25/2024 1:24 PM EDT Body Mass Index 40.78 10/25/2024 1:24 PM EDT Plan of Treatment Upcoming Encounters Date Type Department Care Team (Late st Contact Info) Description 12/15/2024 12:30 PM EST Office Visit Adult Medicine [address] [phone] Theresa Dhillon MD [address] [place] [phone] Health Maintenance Due Date Last Done Comments Medicare Annual Wellness Visit 01/18/2022 Influenza Vaccine (#1) 2024 03/17/2012, 2011 Hypertension/CHF/CAD Annual BMP Blood Test 09/13/2025 09/13/2024, 04/23/2022, 02/12/2021, Additional history exists Social Influencers of Health Screening 09/13/2025 09/13/2024 Breast Cancer Screening 10/28/2026 10/29/19, 10/09/2023, 10/09/2023, Additional history exists Cholesterol Screening (Lipid Panel) 04/24/2027 04/23/2022 Cervical Cancer Screening: HPV 09/16/2028 09/17/2023 Colorectal Cancer Screening: Colonoscopy 06/11/2031 06/10/2021 DTaP,Tdap,and Td Vaccines (3 - Td or Tdap) 04/16/2032 04/16/2022, 06/19/2011 RSV Immunization Adult Patients (1 - 1-dose 75+ series) 09/09/2046 HIV Screening Completed 01/11/2014 Hepatitis C Screening [...] Procedure Name Priority Date/Time Associated Diagnosis Comments MG MAMMO DIGITAL SCREENING W EDDIE BILAT Routine 10/28/2024 2:11 PM EDT Encounter for screening mammogram for breast cancer TISSUE EXAM Routine 10/25/2024 1:30 PM EDT Nevus HEMOGLOBIN A1C Routine 09/14/2024 12:14 PM EDT [...] EDT Fatigue, unspecified type Vitamin B12 deficiency HM DEPRESSION SCREENING Routine 09/21/2023 HPV Routine 09/17/2023 LIPID PANEL Routine 04/23/2022 COLONOSCOPY Routine 06/10/2021 HEPATITIS C SCREENING Routine 12/23/2016 HIV SCREENING Routine 01/11/2014 from Last 3 Months or Most Recently Relevant to Health Maintenance Results * MG Mammo Digital Screening w Eddie bilat (10/28/2024 2:11 PM EDT) Anatomical Region Laterality Modality Breast Bilateral Mammography 10/31/2024 7:11 PM EDT Impressions 10/31/2024 7:13 PM EDT No mammographic evidence for malignancy. BI-RADS CATEGORY: 1 - NEGATIVE RECOMMENDATION: Screening bilateral mammogram is recommended in 1 year. Mammo Location: [facility], [address] [place] [address], [phone], . -------- FINAL REPORT -------- Dictated By: Rachel Hernandez Dictated Date: 10/31/2024 19:11 ET Assigned Physician: Rachel Hernandez Reviewed and Electronically Signed By: Rachel Hernandez Signed Date: 10/31/2024 19:13 ET Workstation ID: [id number] Transcribed By: Self Edit Transcribed Date: 10/31/2024 19:11 ET Narrative 10/31/2024 7:13 PM EDT Bilateral screening mammogram. CLINICAL: 54 years old, Female, routine annual exam. COMPARISON: Prior mammograms, latest from 10/09/2023. TECHNIQUE: Bilateral MLO and CC views were obtained digitally with 2-D C views and 3-D mammogram (digital breast tomosynthesis). Computer-aided detection was utilized in evaluation of this exam (CAD). FINDINGS: There is no evidence of suspicious mass or architectural distortion. No worrisome calcifications are evident. There has been no significant change from prior exam(s). BREAST DENSITY: B - There are scattered areas of fibroglandular density. Procedure Note Rachel Hernandez MD - 10/31/2024 Bilateral screening mammogram. CLINICAL: 54 years old, Female, routine annual exam. COMPARISON: Prior mammograms, latest from 10/09/2023. TECHNIQUE: Bilateral MLO and CC views were obtained digitally with 2-D Cviews and 3-D mammogram (digital breast tomosynthesis). Computer-aideddetection was utilized in evaluation of this exam (CAD). FINDINGS: There is no evidence of suspicious mass or architectural distortion. Noworrisome calcifications are evident. There has been no significantchange from prior exam(s). BREAST DENSITY: B - There are scattered areas of fibroglandular density. IMPRESSION: No mammographic evidence for malignancy. BI-RADS CATEGORY: 1 - NEGATIVE RECOMMENDATION: Screening bilateral mammogram is recommended in 1 year. Mammo Location: [facility], [address] [place] [address], [phone], . -------- FINAL REPORT -------- Dictated By: Rachel Hernandez Dictated Date: 10/31/2024 19:11 ET Assigned Physician: Rachel Hernandez Reviewed and Electronically Signed By: Rachel Hernandez Signed Date: 10/31/2024 19:13 ET Workstation ID: [id number] Transcribed By: Self Edit Transcribed Date: 10/31/2024 19:11 ET us Theresa Dhillon MD IMG BI PROCEDURES Final Result * Tissue exam (10/25/2024 1:30 PM EDT) Final Diagnosis Skin, upper back, excision: Residual dermal component of melanocytic nevus - No atypia identified Margins uninvolved 10/27/2024 12:03 PM EDT [facility] Clinical Information Nevus D22.9 Mid back [id number] 10/27/2024 12:03 PM EDT [facility] Gross Description A. Back, Upper, Nevus: Labeled labeled back U . Received in formalin is a 1 x 0.6 cm unoriented rae-white skin ellipse excised to a depth of 0.8 cm. The epidermis displays a central 0.3 x 0.3 cm faint rae-white pale area with possible peripheral rae discoloration. The specimen is quadrisected and entirely submitted in two cassettes, with the unoriented en face tips in cassette 1, 2 pieces each. ADRYAN 10/27/2024 12:03 PM EDT [facility] Disclaimer Unless otherwise specified, all tissue is 10% NB formalin fixed and paraffin embedded. 10/27/2024 12:03 PM EDT [facility] Tissue Structure of upper back / Unknown Non-blood Collection / Unknown 10/25/2024 1:30 PM EDT 10/25/2024 1:36 PM EDT Comment:Mid [id number] Sidney Nguyễn MD LAB PATHOLOGY ORDERABLES Fi nal Result Performing Organization Address City/[facility]/ZIP Co de Phone Number [facility] [address] [place] [address], * Hemoglobin A1c (09/14/2024 12:14 PM EDT) Hemoglobin A1C 6.2 <6.5 % LAB CHEMISTRY METHOD 09/14/2024 9:17 PM EDT [facility] Mean Bld Glu Estim. 131 mg/dL LAB CHEMISTRY METHOD 09/14/2024 9:17 PM EDT [facility] Blood Venous blood specimen / Unknown Venipuncture / Unknown 09/14/2024 12:14 PM EDT 09/14/2024 12:14 PM EDT Amanda HARRINGTON LAB BLOOD ORDERABLES Final Resu lt [facility] [address] [place] [address], [place] [phone] * Thyroid stimulating hormone with reflex to free t4 and free t3 (09/13/2024 1:12 PM EDT) TSH 1.97 0.40 - 4.00 mcIU/mL LAB CHEMISTRY METHOD 09/13/2024 6:48 PM EDT [facility] Blood Venous blood specimen / Unknown Venipuncture / Unknown 09/13/2024 1:12 PM EDT 09/13/2024 1:12 PM EDT Amanda HARRINGTON LAB BLOOD ORDERABLES Final Resu lt Performing Organization Address [facility]/ZIP Co de Phone Number [facility] [address] [place] [address], * (ABNORMAL) CBC auto differential (09/13/2024 1:12 PM EDT) Pathologist [facility] WBC 6.0 4.8 - 10.8 K/mcL LAB HEMETOLOGY METHOD 09/13/2024 4:52 PM EDT [facility] RBC 4.90(H) 3.80 - 4.80 M/mcL LAB HEMETOLOGY METHOD 09/13/2024 4:52 PM EDT [facility] Hemoglobin 14.1 11.5 - 16.0 g/dL LAB HEMETOLOGY METHOD 09/13/2024 4:52 PM EDT [facility] Hematocrit 45.1 35.0 - 47.0 % LAB HEMETOLOGY METHOD 09/13/2024 4:52 PM EDT [facility] MCV 92.8 79.0 - 98.0 FL LAB HEMETOLOGY METHOD 09/13/2024 4:52 PM EDT [facility] MCH 29.0 27.0 - 32.0 pcg LAB HEMETOLOGY METHOD 09/13/2024 4:52 PM [facility] MCHC 31.3(L) 32.0 - 37.0 g/dL LAB HEMETOLOGY METHOD 09/13/2024 4:52 PM [facility] RDW 13.4 11.0 - 15.0 % LAB HEMETOLOGY METHOD 09/13/2024 4:52 PM [facility] Platelets 251 130 - 400 K/mcL LAB HEMETOLOGY METHOD 09/13/2024 4:52 PM [facility] MPV 10.2 7.0 - 11.0 FL LAB HEMETOLOGY METHOD 09/13/2024 4:52 PM [facility] NRBC 0.0 <1.0 % LAB HEMETOLOGY METHOD 09/13/2024 4:52 PM [facility] NRBC Absolute 0.00 <0.10 K/mcL LAB HEMETOLOGY METHOD 09/13/2024 4:52 PM [facility] Neutrophils Relative 76.7 % LAB HEMETOLOGY METHOD 09/13/2024 4:52 PM [facility] Lymphocytes Relative 14.8 % LAB HEMETOLOGY METHOD 09/13/2024 4:52 PM [facility] Monocytes Relative 7.5 % LAB HEMETOLOGY METHOD 09/13/2024 4:52 PM [facility] Eosinophils Relative 0.3 % LAB HEMETOLOGY METHOD 09/13/2024 4:52 PM [facility] Basophils Relative 0.5 % LAB HEMETOLOGY METHOD 09/13/2024 4:52 PM [facility] Immature Granulocytes Relative 0.2 % LAB HEMETOLOGY METHOD 09/13/2024 4:52 PM [facility] Neutrophils Absolute 4.62 1.50 - 7.00 K/mcL LAB HEMETOLOGY METHOD 09/13/2024 4:52 PM EDT [facility] Lymphocytes Absolute 0.89(L) 1.00 - 5.00 K/[facility] LAB HEMETOLOGY METHOD 09/13/2024 4:52 PM EDT [facility] Monocytes Absolute 0.45 0.20 - 1.00 K/[facility] LAB HEMETOLOGY METHOD 09/13/2024 4:52 PM EDT [facility] Eosinophils Absolute 0.02 0.00 - 0.50 K/[facility] LAB HEMETOLOGY METHOD 09/13/2024 4:52 PM EDT [facility] Basophils Absolute 0.03 0.00 - 0.20 K/[facility] LAB HEMETOLOGY METHOD 09/13/2024 4:52 PM EDT [facility] Immature Granulocytes Absolute 0.01 0.00 - 0.03 K/[facility] LAB HEMETOLOGY METHOD 09/13/2024 4:52 PM EDT [facility] Blood Venous blood specimen / Unknown Venipuncture / Unknown 09/13/2024 1:12 PM EDT 09/13/2024 1:12 PM EDT us Amanda HARRINGTON LAB BLOOD ORDERABLES Final Resu lt [facility] [address] [place] [address], * Iron and TIBC (09/13/2024 1:12 PM EDT) Iron 113 40 - 150 mcg/dL LAB CHEMISTRY METHOD 09/13/2024 5:10 PM EDT [facility] TIBC 374 250 - 450 mcg/dL LAB CHEMISTRY METHOD 09/13/2024 5:10 PM EDT [facility] Iron Saturation 30 15 - 50 % LAB CHEMISTRY METHOD 09/13/2024 5:10 PM EDT [facility] Blood Venous blood specimen / Unknown Venipuncture / Unknown 09/13/2024 1:12 PM EDT 09/13/2024 1:12 PM EDT Amanda HARRINGTON LAB BLOOD ORDERABLES Final Resu lt Performing Organization Address City/[facility]/ZIP Co de Phone Number [facility] [address] [place] [address], [place] [phone] * Vitamin D 25 hydroxy (09/13/2024 1:12 PM EDT) Vit D, 25-Hydroxy 67.6 30.0 - 80.0 ng/mL LAB CHEMISTRY METHOD 09/13/2024 6:08 PM EDT [facility] Blood Venous blood specimen / Unknown Venipuncture / Unknown 09/13/2024 1:12 PM EDT 09/13/2024 1:12 PM EDT Amanda HARRINGTON LAB BLOOD ORDERABLES Final Resu lt Performing Organization Address [facility]/ZIP Co de Phone Number [facility] [address] [place] [address], [place] [phone] * (ABNORMAL) Folate (09/13/2024 1:12 PM EDT) Folate >20.0(H) 2.8 - 17.0 ng/ml LAB CHEMISTRY METHOD 09/13/2024 5:32 PM EDT [facility] Blood Venous blood specimen / Unknown Venipuncture / Unknown 09/13/2024 1:12 PM EDT 09/13/2024 1:12 PM EDT Amanda HARRINGTON LAB BLOOD ORDERABLES Final Resu lt Performing Organization Address City/[facility]/ZIP Co de Phone Number [facility] [address] [place] [address], [place] [phone] * Ferritin (09/13/2024 1:12 PM EDT) Pathologist [facility] Ferritin 129 8 - 252 ng/mL LAB CHEMISTRY METHOD 09/13/2024 5:32 PM EDT [facility] Blood Venous blood specimen / Unknown Venipuncture / Unknown 09/13/2024 1:12 PM EDT 09/13/2024 1:12 PM EDT Amanda HARRINGTON LAB BLOOD ORDERABLES Final Resu lt [facility] [address] [place] [address], [place] [phone] * Vitamin B12 (09/13/2024 1:12 PM EDT) Pathologist [facility] Vitamin B-12 602 250 - 900 pcg/mL LAB CHEMISTRY METHOD 09/13/2024 5:32 PM EDT [facility] Blood Venous blood specimen / Unknown Venipuncture / Unknown 09/13/2024 1:12 PM EDT 09/13/2024 1:12 PM EDT Amanda HARRINGTON LAB BLOOD ORDERABLES Final Resu lt [facility] [address] [place] [address], [place] [phone] * (ABNORMAL) Comprehensive metabolic panel (09/13/2024 1:12 PM EDT) Pathologist [facility] Sodium 142 133 - 145 mmol/L LAB CHEMISTRY METHOD 09/13/2024 5:10 PM EDT [facility] Potassium 3.9 3.5 - 5.5 mmol/L LAB CHEMISTRY METHOD 09/13/2024 5:10 PM EDT [facility] Chloride 108 96 - 110 mmol/L LAB CHEMISTRY METHOD 09/13/2024 5:10 PM [facility] CO2 31 21 - 32 mmol/L LAB CHEMISTRY METHOD 09/13/2024 5:10 PM [facility] Anion Gap 3 3 - 11 LAB CHEMISTRY METHOD 09/13/2024 5:10 PM [facility] Glucose 137(H) 70 - 100 mg/dL LAB CHEMISTRY METHOD 09/13/2024 5:10 PM [facility] BUN 16 5 - 25 mg/dL LAB CHEMISTRY METHOD 09/13/2024 5:10 PM [facility] Creatinine 0.94 0.50 - 1.10 mg/dL LAB CHEMISTRY METHOD 09/13/2024 5:10 PM [facility] eGFR 73 >=60 mL/min/1. 73m2 LAB CHEMISTRY METHOD 09/13/2024 5:10 PM [facility] Comment:Calculation based on the Chronic Kidney Disease Epidemiology Collaboration (CKD-EPI) equation refit without adjustment for race. BUN/Creatinine Ratio 17.0 LAB CHEMISTRY METHOD 09/13/2024 5:10 PM [facility] Calcium 9.6 8.5 - 10.5 mg/dL LAB CHEMISTRY METHOD 09/13/2024 5:10 PM [facility] AST (SGOT) 16 10 - 42 unit/L LAB CHEMISTRY METHOD 09/13/2024 5:10 PM [facility] ALT (SGPT) 39 10 - 60 unit/L LAB CHEMISTRY METHOD 09/13/2024 5:10 PM [facility] Alkaline Phosphatase 65 42 - 121 unit/L LAB CHEMISTRY METHOD 09/13/2024 5:10 PM [facility] Total Protein 6.6 6.0 - 8.0 g/dL LAB CHEMISTRY METHOD 09/13/2024 5:10 PM [facility] Albumin 4.1 3.2 - 5.0 g/dL LAB CHEMISTRY METHOD 09/13/2024 5:10 PM EDT [facility] Total Bilirubin 0.8 0.0 - 1.4 mg/dL LAB CHEMISTRY METHOD 09/13/2024 5:10 PM EDT [facility] Blood Venous blood specimen / Unknown Venipuncture / Unknown 09/13/2024 1:12 PM EDT 09/13/2024 1:12 PM EDT Amanda HARRINGTON LAB BLOOD ORDERABLES Final Resu lt [facility] [address] [place] [address], * Depression Screening (09/21/2023) [facility] Depression Screening Abstracted [facility] Provider HEALTH MAINTENANCE Final Result * Cervical Cancer Screening: HPV (09/17/2023) [facility] Cervical Cancer Screening: HPV Negative, Abstracted [facility] Provider HEALTH MAINTENANCE Final Result * (ABNORMAL) Lipid panel (04/23/2022) [facility] LDL/HDL Ratio 4 0 - 4 Triglycerides 225(A) 0 - 150 mg/dL Cholesterol 213(A) 0 - 200 mg/dL HDL 61 >=40 mg/dL LDL Cholesterol 107(A) 0 - 100 mg/dL Blood Venous blood specimen / Unknown Result [facility] Historical Provider LAB BLOOD ORDERABLES Sandra l Result * Colonoscopy (06/10/2021) [facility] Colonoscopy No Interpretation , Abstracted Anatomical Region Laterality Modality Other [facility] Provider HEALTH MAINTENANCE Final Result * Hepatitis C Screening (12/23/2016) [facility] Hepatitis C Screening Abstracted [facility] Provider HEALTH MAINTENANCE Final Result * HIV Screening (01/11/2014) HIV Screening [facility] Historical Provider HEALTH MAINTENANCE Final Result from Last 3 Months or Most Recently Relevant to Health Maintenance Insurance MEDICARE MEDICAID [place] [employer] Care Teams Corporate Controller Relationship Specialty Start Date End Date Theresa Dhillon MD [address] [place] [phone] PCP - General Internal Medicine 02/16/24
--- OUTSIDE RECORDS SUMMARY | 2024-11-11 09:20 | XMS_ITS | Encounter Summary ---
Author Organization [facility] Address [address] [facility] [address] [place] [phone] Phone Care Team Providers Care Civil Structural Designer Name Role Phone Jose Novoa MD Primary Care Provider [phone] Geovanny Ng MD Primary Care Provider [phone] System, Provider Not In PhD Primary Care Provide Theresa Hernandez MD Primary Care Prov ider Encounter Details Date Type Department Care Team (Latest Contact Info) Description 02/12/2021 Transcribe Orders [facility] [address] [address] Jacinta Kirkland NP [address] [place] [address] Gastroesophageal reflux disease, unspecified whether esophagitis present (Primary Dx); Abdominal pain, epigastric Social History Tobacco Use Types Packs/Day Years [...] Info) Description 11/30/2024 11:30 AM EDT Nutrition [facility] General Surgical Care [address] [place] [address] Isadora Valdivia LDN [address] [place] [place] [address] 12/07/2024 11:00 AM EDT Infusion [facility] [address] [address] Lenny Kirby MD [address] [place] [address] [id number] 12/14/2024 1:30 PM EST Office Visit [facility] General Surgical Care [address] [place] [address] Divya Pan, INNER TUBE TUBER MACHINE OPERATOR [address] [address] 01/04/2025 11:00 AM EST Infusion [facility] [address] [address] Lenny Kirby MD [address] [place] [address] [phone] [email or web address] 02/03/2025 11:00 AM EST Infusion [facility] [address] [address] Lenny Kirby MD [address] [place] [address] [phone] [email or web address] documented as of this encounter Results * (ABNORMAL) C-Reactive Protein (02/12/2021 3:35 PM EST) C REACTIVE PROTEIN 8.9(H) 0.0 - 4.0 mg/L [facility] Blood 02/12/2021 3:35 PM EST 02/12/2021 3:38 PM EST us Jacinta Kirkland MEAT PULLER LAB BLOOD ORDERABLES Sandra l Result [address] [address] * (ABNORMAL) Comprehensive metabolic panel (02/12/2021 3:35 PM EST) Pathologist [facility] SODIUM 141 133 - 146 mmol/L [facility] POTASSIUM 3.9 3.3 - 5.1 mmol/L [facility] CHLORIDE 104 96 - 108 mmol/L [facility] CO2 25 21 - 35 mmol/L [facility] BUN 19 6 - 19 mg/dL [facility] CREATININE 0.70 0.5 - 1.5 mg/dL [facility] GLUCOSE 128(H) 70 - 99 mg/dL [facility] ALBUMIN 4.4 3.9 - 4.8 g/dL [facility] TOTAL PROTEIN 6.8 6.5 - 8.0 g/dL [facility] CALCIUM 9.2 8.4 - 10.3 mg/dL [facility] ALKALINE PHOSPHATASE 71 39 - 117 U/L [facility] TOTAL BILIRUBIN 0.7 0.0 - 1.2 mg/dL [facility] AST 19 0 - 37 U/L [facility] ALT 17 0 - 40 U/L [facility] GLOBULIN 2.4 1 - 4.8 g/dL [facility] EGFR 106 >59 mL/min/1.7 3m2 [facility] Comment:Estimated glomerular filtration rate calculated using the CKD-EPI refit equation. ANION GAP 16 10 - 20 mmol/L [facility] Blood 02/12/2021 3:35 PM EST 02/12/2021 3:38 PM EST us Jacinta Kirkland [employer] LAB BLOOD ORDERABLES Sandra l Result [address] [address] * CBC and differential (02/12/2021 3:35 PM EST) WBC 6.34 4.00 - 11.00 K/uL [facility] RBC 4.91 3.72 - 5.30 M/uL [facility] HGB 14.5 10.6 - 15.5 g/dL [facility] HCT 44.9 32.0 - 45.0 % [facility] PLT 238 140 - 430 K/uL [facility] MCV 91.4 78.0 - 97.0 fL [facility] MCH 29.5 25.0 - 33.0 pg [facility] MCHC 32.3 32.0 - 36.0 g/dL [facility] RDW 13.0 11.0 - 16.0 % [facility] MPV 10.8 8.4 - 12.8 fl [facility] NRBC 0.00 0 /100 WBCs [facility] ABSOLUTE NRBC 0.00 0 K/uL [facility] DIFF METHOD Auto [facility] NEUTS 73.9 43.0 - 75.0 % [facility] LYMPHS 18.5 18.2 - 47.4 % [facility] MONOS 7.1 4.00 - 11.00 % [facility] EOS 0.0 0.0 - 8.0 % [facility] BASOS 0.3 0.0 - 2.0 % [facility] Granulocytes, immature (%) 0.2 0.0 - 0.9 % [facility] ABSOLUTE NEUTS 4.69 1.80 - 7.70 K/uL [facility] ABSOLUTE LYMPHS 1.17 1.00 - 3.10 K/uL [facility] ABSOLUTE MONOS 0.45 0.20 - 0.80 K/uL [facility] ABSOLUTE EOS 0.00 0.00 - 0.80 K/uL [facility] ABSOLUTE BASOS 0.02 0.00 - 0.09 K/uL [facility] Granulocytes, immature 0.01 0.00 - 0.05 K/uL [facility] Blood 02/12/2021 3:35 PM EST 02/12/2021 3:38 PM EST us Jacinta Kirkland NP LAB BLOOD ORDERABLES Sandra gaines Result [facility] [address] [place] [address] documented in this encounter Visit Diagnoses Diagnosis Gastroesophageal reflux disease, unspecified whether esophagitis present- Primary Abdominal pain, epigastric documented in this encounter Additional Health Concerns Infection Onset Date Last Indicated Resolved Time COVID-19 01/14/2023 01/14/2023 02/04/2023 1:21 AM EST documented as of this encounter Care Teams Civil Structural Designer Relationship Specialty Start Date End Date Jose Novoa MD [address] [place] [phone] [email or web address] PCP - General Internal Medicine 11/13/2002/09 Geovanny Ng MD [address] [place] [address] PCP - General Internal Medicine 02/27/21 09/11/21 System, Provider Not In, [place] [address] PCP - General 09/12/21 09/12/21 Theresa Dhillon MD [address] [place] [phone] PCP - General Unknown Provider Specialty 09/13/21 documented as of this encounter Additional Source Comments The information contained in this document represents components of the legal health record. It is not the complete legal health record.[facility]
--- OUTSIDE RECORDS SUMMARY | 2024-11-11 09:20 | XMS_ITS | Encounter Summary ---
Author Organization [facility] Address [address] [place] [address] Phone Care Team Providers Care Attending Ambulatory Care Name Role Phone Theresa Dhillon MD Primary Care Prov ider Reason for Visit * Reason Comments Med Change Request Encounter Details Date Type Department Care Team (Late st Contact Info) Description 10/19/2024 Refill [facility] General Surgical Care [address] [place] [address] Divya Pan, BREAKING MACHINE OPERATOR [address] [facility], 2nd [place] [address] [email or web address] Med Change Request Social History Tobacco Use Types Packs/Day Years Used Date Smoking Tobacco: Former Cigarettes 1 1991 Smokeless Tobacco: Never Comments:Cigar once a [...] Info) Description 11/30/2024 11:30 AM EDT Nutrition [facility] General Surgical Care [address] [place] [address] [place] [address] Isadora Valdivia LDN [address] [place] [place] [address] 12/07/2024 11:00 AM EDT Infusion [facility] [address] [place] [address] Lenny Kirby MD [address] [place] [phone] 12/14/2024 1:30 PM EST Office Visit [facility] General Surgical Care [address] [place] [address] [place] [address] Divya Pan, BREAKING MACHINE OPERATOR [address] [address] 01/04/2025 11:00 AM EST Infusion [facility] [address] [place] [address] Lenny Kirby MD [address] [place] [address] [phone] [email or web address] 02/03/2025 11:00 AM EST Infusion [facility] [address] [place] [address] Lenny Kirby MD [address] [place] [phone] [email or web address] documented as of this encounter Visit Diagnoses Diagnosis Class 3 severe obesity with serious comorbidity and body mass index (BMI) of 40.0 to 44.9 in adult documented in this encounter Care Teams Attending Ambulatory Care Relationship Specialty Start Date End Date Theresa Dhillon MD [address] [place] [phone] PCP - General Unknown Provider Specialty 09/13/21 documented as of this encounter Additional Source Comments The information contained in this document represents components of the legal health record. It is not the complete legal health record.[facility]
== END 2024-11-11 09:56 | disposition home or self-care (01) ==
LOC: HO.HNS 08:52
PROVIDERS: Visit Provider Physician Assistant
DX: M53.3 Sacrococcygeal disorders, not elsewhere classified (principal); G89.29 Other chronic pain
CPT/HCPCS: 99213

== ENCOUNTER → 2024-11-11 08:52 | Outpatient (BNVA) | payer MEDICARE, MEDICAID, SELFPAY | PROVIDERS: Visit Provider Physician Assistant | DX: M53.3 Sacrococcygeal disorders, not elsewhere classified (principal); G89.29 Other chronic pain | CPT/HCPCS: 99212 ==